=== PATIENT | male | born 1950 | race Caucasian/White ===

== ENCOUNTER 2019-10-19 10:03 | Observation (INO) | payer OTHER, SELFPAY ==
[2019-10-19] VITALS (27 sets, daily range): BP systolic 120–161; BP diastolic 58–101; PULSE 74–98; RESP 7–22; TEMP 36.4–36.7; O2SAT 92–97; BMI 22.5
--- NOTE | 2019-10-19 07:00 | XACV_ITS ---
Wt: 71 kg BSA: 1.88 m2 Any Known Allergies: Contrast Gender: Male : 1950 Exam Type: Invasive Peripheral Vascular Procedure(s): Procedure Description: Peripheral Cath Diagnostic Procedure Procedure Description: Lower extremities' angiography Exam Priority: Routine Abdominal Diagnostic Findings Patient with claudication and previous history of intervention to the right leg, details unknown. Noninvasive studies show moderate disease. No significant skin lesions or open sores. Patient is Sabina grade I, category 2; Neftali stage II. Procedure done from the left common femoral artery. Lower abdominal angiography reveals a small AAA near the bifurcation. Otherwise there is moderate plaquing in the abdominal aorta. Lower Extremity Diagnostic Findings On the right, the common iliac, external iliac and common femoral arteries are all patent with minor diffuse disease. The hypogastric artery is patent but contains mild to moderate diffuse disease. The profunda femoris is patent with mild to moderate diffuse disease. The superficial femoral artery is patent with mild diffuse disease. There previously placed stents which begin at the mid vessel and extend to the adductor canal. These are patent. The popliteal is essentially normal with mild diffuse disease. The anterior tibial is occluded a couple centimeters after its origin. The tibial peroneal trunk is patent. The posterior tibial artery is mildly diffusely diseased proximally and then is patent to the ankle. The peroneal artery is patent to the inferior aspect of the gastrocnemius then narrows down to a tiny vessel some of which is patent to the ankle. On the left, the common iliac, external iliac and common femoral arteries are patent with moderate diffuse disease. The profunda femoris artery is patent with moderate diffuse disease. The superficial femoral artery is also patent with moderate diffuse disease. The popliteal is patent with moderate diffuse disease. The anterior tibial artery is patent proximally but then is occluded in the midportion. There is a tiny amount of flow to the mid gastrocnemius muscle area. The tibial peroneal trunk is patent. The posterior tibial artery is patent to the ankle and contains mild diffuse disease. The peroneal artery is also patent to the ankle and contains mild to moderate diffuse disease. Conclusions Small AAA distal aorta. Patent common iliacs, external iliacs, common femorals, profunda femoris, superficial femoral and popliteal arteries bilaterally. One-vessel runoff on the right. Two-vessel runoff on the left. Access Site Site: Left Femoral artery Sheath Size: 6 Fr Hemost... Method: Manual Compression Hemost... Success: Successful Procedure Details Findings Procedure Consent Obtained. Pre-Procedure Time Out. Identified patient by full name and date of as verbalized by the patient/guarantor. Does the consent match the physician's order: Yes. Accurate & Complete Informed Consent: Yes. Inpatient/Outpatient History & Physical on Chart: Yes. If H&P is completed, is and addenduem needed: N/A; If yes, is the addendum complete: N/A. Visualize and Verify Site with Patient/Guarantor: N/A. Relevant Radiology Images available: Yes. Pre-op teaching completed and patient verbalized understanding. The risks, benefits, and alternatives of sedation and/or procedure were discussed by physician. The patient agrees to continue. Procedure started. Correct patient, site and procedure confirmed by cath team. PERRLA. Strong, equal hand wildlife officer bilaterally. Lungs clear x 5 lobes. IV Site on Arrival: 20 gauge in the left wrist. IV Fluids: 0.9% NaCl at KVO. 0 mL infused prior to pathology laboratory director. Pre Procedural Pulses: right dorsalis pedis was 2+. Pre Procedural Pulses: left dorsalis pedis was Doppled. Pre Procedural Pulses: bilateral posterior tibial was 2+. Pre Procedural Pulses: bilateral radial was 3+. Oxygen started at 2liters/min via nasal canula. bilateral groins was prepped with chloroprep then draped in the usual sterile fashion. Physician notified. Equipment: 6F - Femoral. Cardiac Cath Pack. ACIST Manifold Kit Model BT 2000. Heparinized Saline (2 units/mL), 1000 mL bag. Physician arrived. Baseline sample Acquired. HR: 88 BPM. Physician scrubbed in. Immediate Pre-Procedure Time Out. Correct Patient: Yes; Correct Procedure: Yes; Correct Site: Yes; Correct Patient Position: Yes; Correct Supplies: Yes; Dried Flammable Prep: Yes; Blood Products Available: No;. Time out performed with cath team. Lidocaine 1% infiltrated to the left groin. Arterial access obtained. A 5FrFr UF catheter in over wire. Abdominal aortogram performed in AP @ 10 mL/sec for a total of 30 mL. glidewire inserted. Catheter removed over the glide wire. A 5FrFr RIM catheter in over wire. wire out. right leg runnoff 10ml/sec for a total of30ml. Catheter out. Left leg runoff 10ml/sec for a total of 30ml. A Manual Compression was successful obtaining hemostatsis at the Left Femoral artery insertion site. Sheath(s) removed and manual pressure held until hemostasis was achieved. Sterile 4x4 and Op-site applied to the puncture site. No oozing or hematoma noted. Post sheath removal instructions were given and the patient verbalized understanding. Post Procedure: Pulses reassessed and unchanged. PERRLA. Strong, equal hand wildlife officer bilaterally. No VTE prophylaxis required. Total IV fluids: 24.5 mL. Fluoro: 17:00. Contrast type used: Visipaque 320 mgI/mL, 500 mL bottle. [id number]. Post-op diagnosis: PAD. Complications: none. Estimated blood loss: 5mL-10mL. Procedure completed. Patient transferred by bed to 1st floor. Medication's Wasted: Other = versed 1 mg. Medication's Wasted: Other = fenatnyl 50 mcg. Medication's Wasted: Lidocaine 1% = 10 mL. Vital chart was stopped. Procedure Medications Start: 9:14 AM Stop: 9:14 AM Medication: Solu-Medrol (methylprednisolone) Amount: 125 mg Route: I.V. Start: 9:18 AM Stop: 9:18 AM Medication: Versed Amount: 1 mg Route: I.V. Start: 9:18 AM Stop: 9:18 AM Medication: Fentanyl Amount: 50 mcg Route: I.V. I, the attending physician, have reviewed and verified all procedure medications. Yes, all medications given per verbal order History/Risk Factors Hypertension: Yes Dyslipidemia: Yes Peripheral Arterial Disease (PAD): Yes Myocardial Infarction (DC): No Obesity: No Renal Disease: Yes Tobacco Use: Current/Recent(w/in 1 year) Prior Interventions PCI: No CABG: No Valve Surgery: No Report Signatures Finalized by:Dr. Dilshad Gustafson MD on 10/19/2019 10:03:45 AM
[2019-10-19] MEDS: diphenhydrAMINE 50 mg Capsule PO (07:52)
[2019-10-19 08:04] LABS: Basophils # 0.1 10^3/uL (0.0-0.1); Basophils % 0.6 %; Eosinophils # 0.5 10^3/uL (0.0-0.8); Eosinophils % 5.1 %; Hematocrit 38.2 % (42.0-52.0); Hemoglobin 12.3 g/dL (11.7-16.6); Lymphocytes # 2.4 10^3/uL (0.8-4.8); Lymphocytes % 24.8 %; Mean Corpuscular HGB Conc 32.2 g/dL (30.0-36.0); Mean Corpuscular Hemoglobin 29.8 pg (28.0-34.0); Mean Corpuscular Volume 92.5 fL (80-94); Mean Platelet Volume 8.7 fL (7.4-10.4); Monocytes # 0.6 10^3/uL (0.2-0.9); Monocytes % 5.9 %; Neutrophils # 6.1 10^3/uL (1.8-7.7); Neutrophils % 63.1 %; Nucleated Red Blood Cells % 0 %; Platelet Count 315 10^3/cmm (130-400); Red Blood Count 4.13 10^6/uL (4.1-5.3); Red Cell Distribution Width 15.5 % (12.1-15.1); White Blood Count 9.7 10^3/uL (4.0-10.0)
[2019-10-19 08:21] LABS: Blood Urea Nitrogen 15 mg/dL (8-23); Calcium 9.7 mg/dL (8.5-10.5); Carbon Dioxide 25 mmol/L (22-29); Chloride 104 mmol/L (98-107); Glomerular Filtration Rate 54.6 mL/min (90-130); Glucose 127 mg/dL (65-115); Osmolality Calculated 290 mOsm/kg (285-295); Sodium 141 mmol/L (136-145)
--- NOTE | 2019-10-19 08:48 | PM.HP ---
Providers/Chief Complaint Admitting Physician: priscilla Primary Care Provider: Esa Lee Chief Complaint: Claudication History of Present Illness Koki Carlisle is a 69 year old male who was originally referred from the [facility] to Dr. Powell on 12 June last year some 4 months ago. He was having claudication. He is a longstanding smoker. The discomfort was in both legs. He is apparently had several prior interventions that were done at outside hospitals. No information is known about any of these interventions. He was complaining more about his left leg bothering him than the right. After Dr. Powell's visit he asked me to perform angiography which we set up. He came in for that procedure on 06 July of last year. When I went to see the patient in the preoperative area and he had no idea what had been done previously. His creatinine was 2.3 with a BUN of 31 and a glomerular filtration rate of 28 mL/min. Since we had no information and that both he and his are very poor historians I postponed the procedure at the time. His creatinine earlier in the year on 01/15/2019 was 1.6 with a BUN of 23. Patient told me he had seen a kidney specialist in [place]. It turns out that physician is actually a urologist and not a harvest supervisor. Patient's had bladder tumors. At the time he did not have critical limb ischemia and so I postponed the test and ask him to see a harvest supervisor. It took quite some time but ultimately he did see a harvest supervisor. I received a note from the harvest supervisor however no recommendations were made because the patient did not have any labs and did not have a follow-up appointment. We subsequently received another creatinine later on which was 1.6. We never did receive any other further information from the harvest supervisor. We then have asked him to drink plenty of fluids and come back today for reassessment. His creatinine this morning is 1.3 with a BUN of 15 and a glomerular filtration rate of 54.6 mL/min. Review of Systems General: Reports: 10 or more systems reviewed and unremarkable except in HPI and below Medications/Allergies Home Medications Medication Instructions Recorded Confirmed Last Taken Type albuterol sulfate 90 mcg INHALATION QID 10/16/19 10/16/19 10/18/19 06:00 History allopurinol 100 mg PO DAILY 10/16/19 10/16/19 10/18/19 06:00 History amlodipine 10 mg PO DAILY 10/16/19 10/16/19 10/18/19 06:00 History atorvastatin 10 mg PO BEDTIME 10/16/19 10/16/19 10/18/19 18:00 History clopidogrel 75 mg PO DAILY 10/16/19 10/16/19 10/18/19 06:00 History fluticasone propionate 50 mcg INTRANASAL DAILY 10/16/19 10/16/19 10/18/19 06:00 History indomethacin 50 mg PO DAILY 10/16/19 10/16/19 10/18/19 06:00 History pentoxifylline 400 mg PO TID 10/16/19 10/16/19 10/18/19 06:00 History ranitidine HCl 150 mg PO DAILY 10/16/19 10/16/19 10/18/19 06:00 History Allergies Allergy/AdvReac Type Severity Reaction Status Date / Time Penicillins Allergy Severe ALGY-Swell Verified 10/19/19 08:11 Lip/Tongue/Throat clonidine Allergy Unknown ADR-Dizzine Verified 10/19/19 08:11 ss codeine Allergy Unknown ADR-Abdominal Verified 10/19/19 08:11 Pain metoprolol Allergy Unknown ADR-Dizzine Verified 10/19/19 08:11 ss Sulfa (Sulfonamide Allergy Unknown ADR-Cramping Verified 10/19/19 08:11 Antibiotics) of the Muscles Iodinated Contrast Media Allergy ALGY-Rash Verified 10/19/19 08:11 PFSH Acute PFSH: Medical History Dyslipidemia GERD (gastroesophageal reflux disease) Gout HTN (hypertension) Hx of bladder cancer PVD (peripheral vascular disease) with claudication PATIENT STATES I HAVE 2 STENTS IN MY RIGHT LEG . [facility] Smoker attempting to quit. states he smokes on/off every other day. Family History Mother CAD (coronary artery disease) Social History Smoking and tobacco status: current some day smoker cigarettes Packs smoked per day: 1.5 Number of cigarettes per day: 1-5 Quit status (tobacco): considering quitting Second hand smoke exposure: No (ATTEMPTING TO QUIT) Vitals/I&O/Wt Last Vital Signs Temp 98.0 F 10/19/19 08:19 Pulse 77 10/19/19 08:19 Resp 18 10/19/19 08:19 BP 161/76 10/19/19 08:19 Pulse Ox 97 10/19/19 08:19 Weight last 48 hrs Weight 157 lb Physical Exam Narrative: EXAM NARRATIVE: GENERAL: Generally looks and feels well HEENT: Exam within normal limits. NECK: Supple without jugular vein distention. The carotid upstroke is normal without bruits. BACK: Exam normal. LUNGS: Clear. HEART: Regular rate and rhythm. ABDOMEN: Benign without organomegaly or tenderness. EXTREMITIES: No edema. NEUROLOGIC: Exam normal. SKIN: Unremarkable. Data : 10/19/19 07:55 10/19/19 07:55 A&P Assessment and plan (1) Dyslipidemia: Status: Acute Code(s): E78.5 - Hyperlipidemia, unspecified (2) HTN (hypertension): Status: Acute Code(s): I10 - Essential (primary) hypertension (3) PVD (peripheral vascular disease) with claudication: Status: Acute Code(s): I73.9 - Peripheral vascular disease, unspecified (4) Smoker: Status: Acute Code(s): F17.200 - Nicotine dependence, unspecified, uncomplicated (5) Claudication: Status: Acute Code(s): I73.9 - Peripheral vascular disease, unspecified Additional A&P Information Lower abdominal angiography and bilateral lower extremity angiography today. Attestations Medical Necessity Statement*: Patient is an outpatient in a bed and will not require 2 midnight stay Coding Level of Care Code New Pt Acute Transport Corps Officer for Chg Fwd Patient Type New Medical Decision Making Moderate Complexity Diagnoses Dyslipidemia E78.5 HTN (hypertension) I10 PVD (peripheral vascular disease) with claudication I73.9 Smoker F17.200 Claudication I73.9
--- NOTE | 2019-10-19 08:49 | SUR.PREOP ---
Patient ready for procedure by 819. Lab work pending and h/P needs update. Awaiting procedure.
--- NOTE | 2019-10-19 08:59 | PM.CONSULT ---
Providers/Reason For Consult Attending Physician: Dilshad Gustafson MD Primary Care Provider: Esa Lee History of Present Illness History of Present Illness Koki Carlisle is a 69 year old male Meds/Allergies Home Medications and Allergies Home Medications Medication Instructions Recorded Confirmed Type albuterol sulfate 90 mcg INHALATION QID 10/16/19 10/16/19 History allopurinol 100 mg PO DAILY 10/16/19 10/16/19 History amlodipine 10 mg PO DAILY 10/16/19 10/16/19 History atorvastatin 10 mg PO BEDTIME 10/16/19 10/16/19 History clopidogrel 75 mg PO DAILY 10/16/19 10/16/19 History fluticasone propionate 50 mcg INTRANASAL DAILY 10/16/19 10/16/19 History indomethacin 50 mg PO DAILY 10/16/19 10/16/19 History pentoxifylline 400 mg PO TID 10/16/19 10/16/19 History ranitidine HCl 150 mg PO DAILY 10/16/19 10/16/19 History Allergies Allergy/AdvReac Type Severity Reaction Status Date / Time Penicillins Allergy Severe ALGY-Swell Verified 10/19/19 08:11 Lip/Tongue/Throat clonidine Allergy Unknown ADR-Dizzine Verified 10/19/19 08:11 ss codeine Allergy Unknown ADR-Abdominal Verified 10/19/19 08:11 Pain metoprolol Allergy Unknown ADR-Dizzine Verified 10/19/19 08:11 ss Sulfa (Sulfonamide Allergy Unknown ADR-Cramping Verified 10/19/19 08:11 Antibiotics) of the Muscles Iodinated Contrast Media Allergy ALGY-Rash Verified 10/19/19 08:11 Current Medications Current Medications Generic Name Dose Route Start Last Admin Trade Name Freq PRN Reason Stop Dose Admin Sodium Chloride 1,000 mls @ 50 mls/hr 10/19/19 07:49 10/19/19 07:52 Sodium Chloride 0.9% IV 10/20/19 03:48 Not Given .Q20H ONE PFSH Acute PFSH: Medical History Dyslipidemia GERD (gastroesophageal reflux disease) Gout HTN (hypertension) Hx of bladder cancer PVD (peripheral vascular disease) with claudication PATIENT STATES I HAVE 2 STENTS IN MY RIGHT LEG . [facility] . Smoker attempting to quit. states he smokes on/off every other day. Family History Mother CAD (coronary artery disease) Social History Smoking and tobacco status: current some day smoker cigarettes Packs smoked per day: 1.5 Number of cigarettes per day: 1-5 Quit status (tobacco): considering quitting Second hand smoke exposure: No (ATTEMPTING TO QUIT) Vitals/I&O/Wt Last Vital Signs Temp 98.0 F 10/19/19 08:19 Pulse 77 10/19/19 08:19 Resp 18 10/19/19 08:19 BP 161/76 10/19/19 08:19 Pulse Ox 97 10/19/19 08:19 Weight last 48 hrs Weight 157 lb Coding Level of Care Code Acute Abstract Searcher for Chg Nathaly
--- NOTE | 2019-10-19 15:21 | PC.CHAP ---
Pastoral Care Encounter/Spiritual Assessment Type of Contact [] Declined instructional facilitator visit [] Patient/Family/Request visit [] Outpatient visit [] Follow-up visit [] Physician referral [] Code/Alert [x] Routine visit [] Staff referral [] Actively dying [] Patient sleeping [] Family support [] [] Out of room [] Palliative care [] [] Receiving care in room [] Pre-surgical visit [] Trauma [] Long length of stay [] ICU visit [] Other: Relational/Emotional Strength [x] Patient feels connected with others/family/visitors/staff [] Distress [] Loneliness/isolation [] Abandonment Spirituality of Patient [x] Person of Carly [] Attends Caodaism of their Carly [x] Believes in Prayer [] Reads Bible or Religion materials [] There are Spiritual issues to be addressed [facility] Interventions [x] Prayer [x] Active listening [x] Non-anxious presence [x] Spiritual/emotional support [] Crisis/trauma care [] Spiritual counseling [] Bereavement support [] Provided bereavement packet [] Provided Bible/devotional materials [] Provided toy/stuffed animal, coloring book to patient or family member [] Provided Communion [] Anointing/[place] [] Salvation [x] Completed spiritual assessment [] Other: Impact on Illness or Injury [] Angry [] Fearful [] Anxious [] Often cries [] Exhaustion [] Unable to work [] Unable to attend church [] Unable to walk/stand [] Unable to read [] Unable to drive [] Unable to eat/drink [] Unable to sleep [] Unable to be with family [] Patient intubated [] Other: Summary Patient was feeling good. He stated that he has been having circulation issues and has had them in the past. Discussed patient's health and he visited about his life. [facility] prayed with him. Patient was visited by [facility] Ean Macdonald. Time spent with patient 15 minutes
== END 2019-10-19 16:35 | disposition home or self-care (01) ==
LOC: OPCSU 10:03 → CCL 10:16 → CSU 10:17
PROVIDERS: Admitting Provider Internal Medicine Cardiovascular Disease; Family Provider Internal Medicine; PCP Internal Medicine; Visit Provider Internal Medicine Cardiovascular Disease
DX: E78.5 Hyperlipidemia, unspecified (principal); I10 Essential (primary) hypertension; I73.9 Peripheral vascular disease, unspecified; F17.210 Nicotine dependence, cigarettes, uncomplicated; K21.9 Gastro-esophageal reflux disease without esophagitis; Z85.51 Personal history of malignant neoplasm of bladder; Z82.49 Family history of ischemic heart disease and other diseases of the circulatory system; I71.4 Abdominal aortic aneurysm, without rupture
CPT/HCPCS: 12345; 36415; 75625; 75716; 80048; 85025; C1769; C1887; C1894; G0378; J1644; J2001; J2250; J2930; J3010; J7030; Q0163; Q9967

== ENCOUNTER → 2019-10-26 14:05 | Outpatient (BNVA) | payer OTHER, SELFPAY | PROVIDERS: Family Provider Internal Medicine; PCP Internal Medicine; Visit Provider Nurse Practitioner Family | DX: I73.9 Peripheral vascular disease, unspecified (principal) | CPT/HCPCS: 80048 ==

== ENCOUNTER 2020-01-13 07:54 | Day surgery (SDC) | payer OTHER, SELFPAY ==
[2020-01-12 10:16] VITALS: BMI 21.8
--- NOTE | 2020-01-12 10:32 | PC.NURSE ---
called dr. Nesbitt office to inform them that patient was confused on procedure and not aware of the prep for colonoscopy on 6-10. Spoke with rachele and she was to call patient.
[2020-01-13 08:40] VITALS: BP 128/82; PULSE 93; RESP 18; TEMP 36.8; O2SAT 96
[2020-01-13] MEDS: sodium chloride 0.9% 1,000 ML 30 ML IV (09:09)
--- NOTE | 2020-01-13 09:35 | P.HP_ITS ---
Same Day Surgery H&P Indication for Procedure/HPI DATE OF PROCEDURE: January 13, 2020 CHIEF COMPLAINT/INDICATIONFOR SURGICAL PROCEDURE: History of anemia and colon polyps PREOP DIAGNOSIS: Anemia PLANNED PROCEDRUE: Operation Date: 01/13/20 07:20 Proposed Procedures p EGD 02274 D64.9(Not Applicable) - Jovanny Nesbitt MD s Colonoscopy 61505 Z86.010(Not Applicable) - Jovanny Nesbitt MD Operation Date: 01/13/20 09:10 Proposed Procedures p EGD 98893 25505 D64.9 Z86.010(Not Applicable) - Jovanny Nesbitt MD s Colonoscopy(Not Applicable) - Jovanny Nesbitt MD This is a pleasant 69 years old gentleman referred to my practice for further evaluation with regard to history of anemia and history of polyps, the encounter was done through [email or web address] as the patient recalls that he had a previous colonoscopy about 3 to 4 years ago and polyps were found and he was recently undergone an angiogram for peripheral arterial disease and was placed on cilostazole, patient is referred today to discuss further EGD and colonoscopy for anemia, he denies history of hematemesis or bleeding per rectum or history of colon cancer. Patient comes today to undergo diagnostic EGD and colonoscopy ROS All systems have been reviewed negative except as per the above or per problem list Medications/Allergies* Home Medications Medication Instructions Recorded Confirmed Type albuterol sulfate 90 mcg INHALATION QID 10/16/19 01/13/20 History allopurinol 100 mg PO DAILY 10/16/19 01/13/20 History amlodipine 10 mg PO DAILY 10/16/19 01/13/20 History fluticasone propionate 50 mcg INTRANASAL DAILY 10/16/19 01/13/20 History atorvastatin 10 mg tablet 20 mg PO BEDTIME tab 10/26/19 01/13/20 History aspirin 81 mg tablet,delayed 81 mg PO DAILY 10/27/19 01/13/20 History release cetirizine 10 mg capsule 10 mg PO .prn cap 10/27/19 01/13/20 History cilostazol 100 mg tablet 100 mg PO BID 10/27/19 01/13/20 History donepezil 10 mg tablet 10 mg PO DAILY 10/27/19 01/13/20 History tramadol 50 mg tablet 50 mg PO Q6H PRN tab 10/27/19 01/13/20 History Allergies/Adverse Reactions Allergy/AdvReac Type Severity Reaction Status Date / Time Penicillins Allergy Severe ALGY-Swell Verified 01/13/20 09:35 Lip/Tongue/Throat clonidine Allergy Unknown ADR-Dizzine Verified 01/13/20 09:35 ss codeine Allergy Unknown ADR-Abdominal Verified 01/13/20 09:35 Pain metoprolol Allergy Unknown ADR-Dizzine Verified 01/13/20 09:35 ss Sulfa (Sulfonamide Allergy Unknown ADR-Cramping Verified 01/13/20 09:35 Antibiotics) of the Muscles Iodinated Contrast Media Allergy ALGY-Rash Verified 01/13/20 09:35 Current Medications: Generic Name Dose Route Start Last Admin Trade Name Freq PRN Reason Stop Dose Admin Sodium Chloride 1,000 mls @ 30 mls/hr 01/13/20 08:15 01/13/20 09:09 Sodium Chloride 0.9% IV 30 mls/hr .Q24H FAIZA Administration Pertinent History/Comorbid Conditions* Medical History Dyslipidemia GERD (gastroesophageal reflux disease) Gout History of colon polyps HTN (hypertension) Hx of bladder cancer Hx of fracture of femur PVD (peripheral vascular disease) with claudication PATIENT STATES I HAVE 2 STENTS IN MY RIGHT LEG . [facility] . Seasonal allergies Smoker attempting to quit. states he smokes on/off every other day. Surgical History (Updated 11/09/19 @ 11:05 by Jovanny Nesbitt MD) H/O vasectomy History of colonoscopy with polypectomy Hx of appendectomy Family History (Updated 11/09/19 @ 10:40 by Nhi Whitfield RN) CAD (coronary artery disease) Mother Denies family history of Anesthesia complication Bleeding disorder Social History Smoking and tobacco status: current some day smoker cigarettes Packs smoked per day: 1.5 Quit status (tobacco): considering quitting Second hand smoke exposure: No (ATTEMPTING TO QUIT) Pertinent Exam Findings alert, oriented x 3, clear to auscultation bilaterally, regular rate & rhythm and procedure specific exam findings (Abdomen NT ND Soft) Recommendations Surgery/Procedure today (EGD and colonoscopy and informed consent per chart) Coding Level of Care Code Acute School Examiner for Michele Andersen
--- NOTE | 2020-01-13 09:35 | ANES.PREANE2 ---
Pre-Anesthetic Assessment Pre-Anesthetic Assessment: Height/Weight: Height 1.78 m Weight 68.946 kg Temp Pulse Resp BP Pulse Ox 98.2 F 93 18 128/82 96 01/13/20 08:40 01/13/20 08:40 01/13/20 08:40 01/13/20 08:40 01/13/20 08:40 Preop Diagnosis: Anemia Proposed Procedure: Operation Date: 01/13/20 07:20 Proposed Procedures p EGD 14461 D64.9(Not Applicable) - Jovanny Nesbitt MD s Colonoscopy 65569 Z86.010(Not Applicable) - Jovanny Nesbitt MD Operation Date: 01/13/20 09:10 Proposed Procedures p EGD 04097 92004 D64.9 Z86.010(Not Applicable) - Jovanny Nesbitt MD s Colonoscopy(Not Applicable) - Jovanny Nesbitt MD Was Beta Shana taken within 24 hours: N/A Social: Social History: Tobacco and No alcohol Packs per day: 0.5 Exam: Pre-Anes Outpt Exam: alert Airway: Submandibular: WNL Cervical ROM: WNL Dentition: Full History/ROS: No significant history except as noted Pulmonary: Pulmonary: COPD CV/HEM: CV/HEM: HTN : Comments: cancer bladder, prostate Hepatic: Hepatic: None reported GI: GI: None reported Metabolic: Metabolic: None reported Musc/skel: Musc/skel: None reported Neuropsych: Neuropsych: None reported Anesthetic Plan: ASA status: 2 Anesthesia: MAC Risk of > 500 ml blood loss (7ml/kg in children): No Meds/Allergies Current Medications: Current Medications Generic Name Dose Route Start Last Admin Trade Name Freq PRN Reason Stop Dose Admin Sodium Chloride 1,000 mls @ 30 ml s/hr 01/13/20 08:15 01/13/20 09:09 Sodium Chloride 0.9% IV 30 mls/hr .Q24H FAIZA Administration PFSH Anesthesia PFSH: Medical History Dyslipidemia GERD (gastroesophageal reflux disease) Gout History of colon polyps HTN (hypertension) Hx of bladder cancer Hx of fracture of femur PVD (peripheral vascular disease) with claudication PATIENT STATES I HAVE 2 STENTS IN MY RIGHT LEG . [facility] . Seasonal allergies Smoker attempting to quit. states he smokes on/off every other day. Surgical History H/O vasectomy History of colonoscopy with polypectomy Hx of appendectomy Family History Mother CAD (coronary artery disease) Denies family history of Anesthesia complication Bleeding disorder Social History Smoking and tobacco status: current some day smoker cigarettes Packs smoked per day: 1.5 Quit status (tobacco): considering quitting Second hand smoke exposure: No (ATTEMPTING TO QUIT) Data Anesthesia Cardiac Studies: No Data to Display
[2020-01-13 10:10] VITALS: BP 108/67; PULSE 92; RESP 16; TEMP 36.5; O2SAT 93
--- NOTE | 2020-01-13 10:16 | ANE.PACU2 ---
Inpatient post-anesthesia follow up: Airway intact: Yes Vital signs: Temperature 98.2 F Pulse Rate 93 Respiratory Rate 18 Blood Pressure 128/82 Pulse Oximetry 96 Oxygen Delivery Me thod Room Air Oxygen Flow Rate Fraction of Inspir ed Oxygen Hydration adequate: Yes Nausea and vomiting: No Pain level: 1 Mental status: Baseline
[2020-01-13 10:34] VITALS: BP 127/80; PULSE 85; RESP 16; O2SAT 99
[2020-01-18 06:56] LABS: H. Pylori / CLO Test Negative
== END 2020-01-13 10:46 | disposition home or self-care (01) ==
PROVIDERS: Visit Provider Surgery
PROC: 0DJ08ZZ Inspection of Upper Intestinal Tract, Via Natural or Artificial Opening Endoscopic (ICD-10-PCS; CPT 43235; principal; 2020-01-13 09:10)
PROC: 0DJD8ZZ Inspection of Lower Intestinal Tract, Via Natural or Artificial Opening Endoscopic (ICD-10-PCS; CPT 45378; 2020-01-13 09:10)
DX: D64.9 Anemia, unspecified (principal); Z86.010 Personal history of colon polyps; K57.30 Diverticulosis of large intestine without perforation or abscess without bleeding; K21.9 Gastro-esophageal reflux disease without esophagitis; K44.9 Diaphragmatic hernia without obstruction or gangrene; K29.70 Gastritis, unspecified, without bleeding; J44.9 Chronic obstructive pulmonary disease, unspecified; F17.210 Nicotine dependence, cigarettes, uncomplicated; I10 Essential (primary) hypertension; E78.5 Hyperlipidemia, unspecified; Z85.51 Personal history of malignant neoplasm of bladder
CPT/HCPCS: 12345; 43239; 45378; 87077; J2704; J7030

== ENCOUNTER → 2020-02-23 15:15 | Outpatient (BNVA) | payer MEDICARE, SELFPAY | PROVIDERS: Visit Provider Nurse Practitioner Family | DX: S89.91XA Unspecified injury of right lower leg, initial encounter (principal); W19.XXXA Unspecified fall, initial encounter | CPT/HCPCS: 73562 ==

== ENCOUNTER → 2020-02-29 17:10 | Outpatient (BNVA) | payer MEDICARE, SELFPAY | PROVIDERS: Visit Provider Nurse Practitioner Family | DX: M25.562 Pain in left knee (principal) | CPT/HCPCS: 80053; 84550; 85025 ==

== ENCOUNTER 2020-11-09 10:22 | Outpatient (CLI) | payer OTHER, SELFPAY ==
--- NOTE | 2020-11-09 10:29 | USCV_ITS ---
Koki Carlisle Age: 70 Gender: M : 1950 Exam Date: 11/09/2020 10:47 Ordering Phys: Lacy Strange MD Technologist: Roselia Orta Exam Location: [facility] [place] Indication: MEMORY LOSS Risk Factors: Previous Vascular Surgery: Right Brachial BP: / Left Brachial BP: / Right Left Velocity (cm/s) Spectral Plaque Velocity (cm/s) Spectral Plaque Syst/Diast Broadening Syst/Diast Broadening 118.00/12.10 Prox CCA 108.10/ 15.40 73.50/ 15.40 Mid CCA 85.40 / 12.80 63.50/ 12.60 Distal CCA 64.10 / 13.70 61.40/ 17.10 Prox ICA 57.50 / 10.90 69.10/ 21.80 Mid ICA 67.60 / 20.20 76.30/ 29.20 Distal ICA 61.40 / 20.20 111.40 ECA 119.70 0.65 ICA/CCA 0.63 Antegrade Vertebral Antegrade 57.10/ 13.50 cm/s 55.60/ 12.80 cm/s Tri Subclavian Tri 155.1 188.3 0 0 CONCLUSIONS Right ICA stenosis <50%. Mild atheromatous plaque right carotid bulb/ICA. Left ICA stenosis <50%. Mild atheromatous plaque left carotid bulb/ICA. Normal antegrade Doppler flow noted in the right vertebral artery. Normal antegrade Doppler flow noted in the left vertebral artery. Wicho Johns MD (Electronically Signed) Final Date: 10 November 2020 10:24 S
== END 2020-11-09 10:23 | disposition home or self-care (01) ==
LOC: RAD 10:26
PROVIDERS: PCP Family Medicine; Visit Provider Family Medicine
DX: R41.3 Other amnesia (principal); I65.23 Occlusion and stenosis of bilateral carotid arteries
CPT/HCPCS: 93880

== ENCOUNTER → 2020-12-05 09:35 | Outpatient (BNVA) | payer OTHER, SELFPAY | PROVIDERS: PCP Family Medicine; Visit Provider Nurse Practitioner | DX: R41.89 Other symptoms and signs involving cognitive functions and awareness (principal); F17.210 Nicotine dependence, cigarettes, uncomplicated | CPT/HCPCS: 96116; 99204; 99205 ==

== ENCOUNTER 2021-02-02 08:17 | Outpatient (CLI) | payer OTHER, SELFPAY ==
--- NOTE | 2021-02-02 08:00 | MR_ITS ---
WS: [id number] MRI HEAD WITHOUT CONTRAST TECHNIQUE: Sagittal T1, T2 axial, T2 axial FLAIR, axial and coronal T1 images, axial susceptibility w eighted imaging, axial diffusion weighted images, and coronal T2 images were obtained. CLINICAL INFORMATION: R41.89 - Other symptoms and signs involving cognitive fun... COMPARISON: None. FINDINGS: Suggestion of a tiny amount of partially restricted diffusion involving the left cervical medullary j unction dorsally measuring 4 mm is equivocal but suspicious for acute to subacute ischemia. Tiny amou nt of T2 signal abnormality in this location. This is at the very edge of the [id number] and may r epresent artifact. Otherwise no suspicious areas of restricted diffusion or acute ischemia. Moderate small vessel changes. Moderate parenchymal volume loss. Small vessel changes in the jay. Ch ronic lacunar infarcts in the left caudate and left greater than right basal ganglia. Normal posterio r fossa. Normal vascular flow voids at the skull base. No extra-axial fluid collections. Normal optic chiasm and pituitary infundibulum. Moderate symmetric atrophy temporal lobes and hippocampal formati ons. No signal abnormalities in the temporal lobes. No hemosiderin on susceptibly weighted images. MR/MR head wo con* [id number] IMPRESSION: 1. Suggestion of a tiny amount of acute or subacute ischemia in the dorsal cer vicomedullary junction measuring 4 mm. This is at the edge of field of view and may represent artifact. Recommend correlation for recent lateral medullary sym ptoms. 2. No other evidence of acute ischemia. 3. Moderate small vessel changes with moderate parenchymal volume loss. 4. Chronic lacunar infarcts in the left caudate and left greater than right ba juju ganglia. 5. Small vessel changes in the jay. 6. Moderate symmetric atrophy temporal lobes and hippocampal formations. No si gnal abnormalities in the mesial temporal lobes. 7. No hemosiderin on susceptibly weighted images. 8. No other significant findings.
== END 2021-02-02 08:18 | disposition home or self-care (01) ==
LOC: RADSHAW 08:19
PROVIDERS: PCP Family Medicine; Visit Provider Specialist
DX: R41.89 Other symptoms and signs involving cognitive functions and awareness (principal); G31.9 Degenerative disease of nervous system, unspecified; I63.81 Other cerebral infarction due to occlusion or stenosis of small artery
CPT/HCPCS: 70551

== ENCOUNTER 2021-02-23 20:56 | Observation (INO) | payer OTHER, SELFPAY ==
[2021-02-23 20:59] VITALS: BP 136/72; PULSE 99; RESP 18; TEMP 36.5; O2SAT 97; BMI 23.6
--- NOTE | 2021-02-23 21:06 | ECG_ITS ---
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 Measurements Intervals [place] Rate: 99 P: 52 MA: 151 QRS: 31 QRSD: 90 T: 45 QT: 365 QTc: 470 Interpretive Statements SINUS RHYTHM NONSPECIFIC T-WAVE ABNORMALITY INTERPRETATION BASED ON A DEFAULT AGE OF 40 YEARS No previous ECG available for comparison Electronically Signed On 02-24-2021 14:53:42 CDT by Angella Cervantes M.D. [id number]
--- NOTE | 2021-02-23 21:06 | CTR_ITS ---
PROCEDURE INFORMATION: Exam: CT Head Without Contrast Exam date and time: 02/23/2021 9:06 PM Age: 70 years old Clinical indication: Altered mental status/memory loss; Additional info: Headache TECHNIQUE: Imaging protocol: Computed tomography of the head without contrast. Radiation optimization: All CT scans at this facility use at least one of these dose optimization techniques: automated exposure control; mA and/or kV adjustment per patient size (includes targeted exams where dose is matched to clinical indication); or iterative reconstruction. COMPARISON: MR head wo con* [id number] 02/02/2021 9:27 AM RADIATION DOSE METRICS: Total DLP (mGy-cm): 705.06 FINDINGS: Brain: There is mild cortical atrophy. Low-density changes in the white matter are consistent with nonspecific small vessel chronic ischemic change. There is no intracranial mass, hemorrhage or edema. There is small old lacunar infarct in the left basal ganglia. Cerebral ventricles: No ventriculomegaly. Paranasal sinuses: Visualized sinuses are unremarkable. No fluid levels. Mastoid air cells: Visualized mastoid air cells are well aerated. Bones/joints: Unremarkable. No acute fracture. Soft tissues: Unremarkable. CT/CT head wo con* [id number] IMPRESSION: 1. Atrophy and old lacunar disease. 2. No acute intracranial finding. Radiation Dose CTDIVOL = (mGy): DLP = 705.06 (mGy-cm)
--- NOTE | 2021-02-23 21:06 | XRR_ITS ---
PROCEDURE INFORMATION: Exam: XR Chest Exam date and time: 02/23/2021 9:06 PM Age: 70 years old Clinical indication: Cough; Patient HX: PT AMS unable to obtain HX TECHNIQUE: Imaging protocol: XR of the chest. Views: 1 view. COMPARISON: CT chest con [id number] 04/02/2014 8:56 AM FINDINGS: Lungs: There is some subsegmental atelectasis at the lung bases and some mild focal infiltrate at the right lung base. Pleural spaces: Unremarkable. No pleural effusion. No pneumothorax. Heart/Mediastinum: Heart is within normal limits of size. Bones/joints: Unremarkable. XR/XR chest 1V portable [id number] IMPRESSION: Mild basilar atelectasis and small infiltrate at the right lung base.
--- NOTE | 2021-02-23 21:08 | ED_ITS ---
HPI - Altered Mental Status General: Chief Complaint: Altered Mental Status Stated Complaint: unresposive poss etoh Time Seen by Provider: 02/23/21 21:06 History of Present Illness: HPI narrative: This patient is a 70-year-old male who was found unresponsive on the ground at his home. Patient apparently had been outside doing yard work all day and drinking alcohol. Family member stated been an hour since late last week since eating well. Upon EMS arrival the patient was laying on the ground with his legs crossed the most of his he was taking a nap. Upon approaching the patient patient became very combative and fighting and yelling and screaming and threatening to kill people. Patient states he has a history of killing people from [place] and that he would harm everyone. Patient was demanding to let me let go. EMS reports that they gave patient a 250 mg of ketamine followed by another 200 of ketamine due to the sedation wearing off the patient becoming combative again. Patient's vital signs have been stable otherwise. Medical record shows the patient has a history of cognitive impairment do not know what this classification is. Awaiting for family to arrive. Will do medical evaluation treat as needed MD complaint: confusion and intoxication Associated symptoms: Deny depression Review of Systems General: Reports: ROS unobtainable due to medical condition Const: Denies: fever(s), chills, body aches or fatigue Eyes: Denies: change in vision or blurry vision ENMT: Denies: throat pain, hoarseness or mouth pain Card: Denies: chest pain, palpitations, irregular heart rhythm, edema, swelling of feet/ankles or lightheadedness Resp: Denies: dyspnea, productive cough, non-productive cough, wheezing or pain on inspiration GI: Denies: abdominal pain, nausea or vomiting : Denies: flank pain, dysuria, urinary frequency, urinary urgency or urinary hesitancy Musc: Denies: neck pain, back pain, extremity pain, extremity swelling, joint pain, joint swelling, joint redness, joint warmth or limited range of motion Skin/Breast: Denies: rash, pruritus, erythema or skin tenderness Neuro: Denies: headache(s), numbness in extremities or weakness in extremities Psych: Denies: anxiety or depression PFSH ED PFSH: Medical History Cognitive impairment Dyslipidemia GERD (gastroesophageal reflux disease) Gout History of colon polyps History of nonmelanoma skin cancer HTN (hypertension) Hx of bladder cancer Hx of fracture of femur PVD (peripheral vascular disease) with claudication PATIENT STATES I HAVE 2 STENTS IN MY RIGHT LEG . [facility] . Seasonal allergies Smoker attempting to quit. states he smokes on/off every other day. Surgical History H/O vasectomy History of colonoscopy with polypectomy Hx of appendectomy Family History Mother CAD (coronary artery disease) Denies family history of Anesthesia complication Bleeding disorder Social History Smoking and tobacco status: current every day smoker cigarettes Packs smoked per day: 1.5 [ Other cigarette details: has smoked approx 55 yrs ] Quit status (tobacco): considering quitting Second hand smoke exposure: No (ATTEMPTING TO QUIT) Alcohol intake: never Lives independently: Yes Household members: spouse Marital status: Current occupational status: retired History of recent travel: No Current gender identity: Male Physical Exam Const: COMMON NORMALS: no acute distress, average body habitus, no limitations, healthy appearing, alert and well nourished EXAM LIMITATIONS: other limitations (Patient has been medicated with ketamine. Via EMS) HENMT: COMMON NORMALS: normocephalic, atraumatic, hearing grossly normal bilaterally, external ears normal, EAC's normal, TM's normal bilaterally, Normal external nose present, Normal nasal mucous membranes and turbinates present, moist oral mucous membranes, oropharynx normal, dentition normal and gingiva normal HEAD & SCALP: normocephalic and atraumatic NOSE: Normal external nose present and Normal nasal mucous membranes and turbinates present EXTERNAL EAR: Yes external ears normal EXTERNAL AUDITORY CANAL: EAC's normal TYMPANIC MEMBRANE: TM's normal bilaterally Neck/C-Spine: COMMON NORMALS: full ROM, no lymphadenopathy, supple, no meningeal signs, no JVD, Thyroid normal and No carotid bruits THYROID: Thyroid normal Chest: COMMONS NORMALS: normal inspection of the chest, normal palpation of entire chest wall, normal inspection of the breasts and normal palpation of the breasts Resp: COMMON NORMALS: normal respiratory effort, No retractions, No use of accessory muscles, clear to auscultation bilaterally and percussion normal AUSCULTATION: clear to auscultation bilaterally PERCUSSION: percussion normal Cardio: COMMON NORMALS: no JVD, regular rate, regular rhythm, S1 normal heart sound present, S2 normal heart sound present, No gallops present (Cardio), No clicks present (Cardio), No murmurs present (Cardio), No rub (Cardio) and Peripheral pulses 2+ throughout RATE: regular rate RHYTHM: regular rhythm HEART SOUNDS: S1 normal heart sound present and S2 normal heart sound present PERIPHERAL PULSES: Peripheral pulses 2+ throughout GI: COMMON NORMALS: Normal to inspection, nondistended, normoactive bowel sounds present, Soft to palpation, non-tender, No hepatosplenomegaly present, no masses and no bruits PALPATION: Yes Soft to palpation and Yes No hepatosplenomegaly present : COMMON NORMALS: Yes no CVA tenderness BLADDER/KIDNEY EXAM: Yes no CVA tenderness Back/Pelvis: COMMON NORMALS: no CVA tenderness, thoracic and lumbar spine normal to inspection, no thoracic nor lumbar tenderness, thoraco-lumbar ROM normal and straight leg raise negative bilaterally Extremity: COMMON NORMALS: normal to inspection, full ROM, capillary refill normal, no joint enlargement, no clubbing, cyanosis or edema, no calf tenderness and no pedal edema Neuro: SENSORIUM/ORIENTATION: Yes alert MENINGEAL SIGNS: Yes no meningeal signs Course Reevaluation(s): Reevaluation #1: Patient is calm at this time doing much better after given 0.5 Ativan. is arrived to the hospital. She states that the patient appeared to be sleeping and she could not get him aroused but became awake in the ambulance and it appeared that he was having a flashback from [place]. Very angry and fighting. Patient states he has flashbacks from time to time but it has been a while. states that she also was drinking today and he normally does not drink. States that he has been doing well and actually grilled chicken for dinner. Start everything was acting normally. also states the patient has early dementia and is started medications to help with his memory issues. We will continue medical evaluation treat as needed Time: 22:06 Reevaluation #2: Patient appears to be at his mental baseline at this time. After long discussion with family. Unknown reason why the patient was down in the field and being so combative other than baseline dementia. History of posttraumatic stress disorder related to flashbacks from [place]. Patient appears to be at his baseline. Patient be admitted to the hospital due to confusion and mental status change. Patient family stated Time: 23:51 Consultations: Consultation #1: I did discuss at length with Dr. Aragon he is agreed admit the patient to the hospital for further evaluation and treatment. He will see patient write additional orders Time: 23:52 Vital Signs: Vital signs: Vital Signs Temperature 97.7 F 02/23/21 20:59 Pulse Rate 96 02/23/21 23:06 Respiratory Rate 17 02/23/21 23:06 Blood Pressure 140/78 02/23/21 23:06 Pulse Oximetry 96 02/23/21 23:06 MDM - Altered Mental Status MDM Narrative: Medical decision making narrative: This patient is a 70-year-old male who was found unresponsive on the ground at his home. Patient apparently had been outside doing yard work all day and drinking alcohol. Family member stated been an hour since late last week since eating well. Upon EMS arrival the patient was laying on the ground with his legs crossed the most of his he was taking a nap. Upon approaching the patient patient became very combative and fighting and yelling and screaming and threatening to kill people. Patient states he has a history of killing people from [place] and that he would harm everyone. Patient was demanding to let me let go. EMS reports that they gave patient a 250 mg of ketamine followed by another 200 of ketamine due to the sedation wearing off the patient becoming combative again. Patient's vital signs have been stable otherwise. Medical record shows the patient has a history of cognitive impairment do not know what this classification is. Awaiting for family to arrive. Patient appears to be at his mental baseline at this time. After long discussion with family. Unknown reason why the patient was down in the field and being so combative other than baseline dementia. History of posttraumatic stress disorder related to flashbacks from [place]. Patient appears to be at his baseline. Patient be admitted to the hospital due to confusion and mental status change. Patient family stated I did discuss at length with Dr. Aragon he is agreed admit the patient to the hospital for further evaluation and treatment. He will see patient write additional orders Medical Records: Attestation: I reviewed the patient's medical records. Lab Data: Attestation: I reviewed the patient's lab results. Labs: Lab Results 02/23/21 02/23/21 02/23/21 Range/Units 21:03 21:03 21:03 WBC 7.7 (4.0-10.0) 10^3/ uL RBC 4.08 L (4.1-5.3) 10^6/u L Hgb 12.2 (11.7-16.6) g/dL Hct 38.1 L (42.0-52.0) % MCV 93.4 (80-94) fL MCH 29.9 (28.0-34.0) pg MCHC 32.0 (30.0-36.0) g/dL RDW 19.1 H (12.1-15.1) % Plt Count 205 (130-400) 10^3/c mm MPV 9.2 (7.4-10.4) fL Neut % (Auto) 46.1 % Lymph % (Auto) 37.9 % [place] % (Auto) 10.1 % Eos % (Auto) 4.6 % Baso % (Auto) 1.0 % Neut # (Auto) 3.53 (1.8-7.7) 10^3/u L Lymph # (Auto) 2.9 (0.8-4.8) 10^3/u L [place] # (Auto) 0.8 (0.2-0.9) 10^3/u L Eos # (Auto) 0.4 (0.0-0.8) 10^3/u L Baso # (Auto) 0.1 (0.0-0.1) 10^3/u L Nucleated RBC % (a uto) 0 % Nucleated RBCs # 0.0 /100WBC PT (12.1-14.9) SECO NDS INR (0.8-1.2) APTT (23.9-36.7) SECO NDS Sodium 138 (136-145) mmol/L Potassium 3.5 (3.5-5.1) mmol/L Chloride 106 (98-107) mmol/L Carbon Dioxide 15 L (22-29) mmol/L Anion Gap 20.5 H (5-19) BUN 14 (8-23) mg/dL Creatinine 1.2 (0.7-1.2) mg/dL GFR Calculation Not Reportable Glucose 69 (65-115) mg/dL Calculated Osmolal ity 285 (285-295) mOsm/k g Calcium 7.8 L (8.5-10.5) mg/dL Total Bilirubin 0.2 (0.15-1.2) mg/dL AST 24 (0-40) U/L ALT 19 (0-41) U/L Alkaline Phosphata se 94 (40-130) IU/L Ammonia 39 (16-60) umol/L Troponin T Baselin e (0-15) ng/L Troponin T 120 Min [place] (0-15) ng/L Delta Troponin T (0-10) ABS# NT-Pro-B Natriuret Pep 76 (0-125) pg/mL Total Protein 6.1 L (6.6-8.7) g/dL Albumin 4.0 (3.5-5.2) g/dL Globulin 2.1 (1.3-4.6) g/dL Lipase 155 H (13-60) U/L Acetaminophen < 5.0 L (10-30) ug/mL Ethyl Alcohol 107 H (0-10) mg/dL 02/23/21 02/23/21 02/23/21 Range/Units 21:03 21:03 23:10 WBC (4.0-10.0) 10^3/ uL RBC (4.1-5.3) 10^6/u L Hgb (11.7-16.6) g/dL Hct (42.0-52.0) % MCV (80-94) fL MCH (28.0-34.0) pg MCHC (30.0-36.0) g/dL RDW (12.1-15.1) % Plt Count (130-400) 10^3/c mm MPV (7.4-10.4) fL Neut % (Auto) % Lymph % (Auto) % [place] % (Auto) % Eos % (Auto) % Baso % (Auto) % Neut # (Auto) (1.8-7.7) 10^3/u L Lymph # (Auto) (0.8-4.8) 10^3/u L [place] # (Auto) (0.2-0.9) 10^3/u L Eos # (Auto) (0.0-0.8) 10^3/u L Baso # (Auto) (0.0-0.1) 10^3/u L Nucleated RBC % (a uto) % Nucleated RBCs # /100WBC PT 13.70 (12.1-14.9) SECO NDS INR 1.02 (0.8-1.2) APTT 30.6 (23.9-36.7) SECO NDS Sodium (136-145) mmol/L Potassium (3.5-5.1) mmol/L Chloride (98-107) mmol/L Carbon Dioxide (22-29) mmol/L Anion Gap (5-19) BUN (8-23) mg/dL Creatinine (0.7-1.2) mg/dL GFR Calculation Glucose (65-115) mg/dL Calculated Osmolal ity (285-295) mOsm/k g Calcium (8.5-10.5) mg/dL Total Bilirubin (0.15-1.2) mg/dL AST (0-40) U/L ALT (0-41) U/L Alkaline Phosphata se (40-130) IU/L Ammonia (16-60) umol/L Troponin T Baselin e 12 (0-15) ng/L Troponin T 120 Min [place] 13.50 (0-15) ng/L Delta Troponin T 1.50 (0-10) ABS# NT-Pro-B Natriuret Pep (0-125) pg/mL Total Protein (6.6-8.7) g/dL Albumin (3.5-5.2) g/dL Globulin (1.3-4.6) g/dL Lipase (13-60) U/L Acetaminophen (10-30) ug/mL Ethyl Alcohol (0-10) mg/dL Imaging Data^: CXR: Attestation: I personally reviewed and interpreted this imaging study as follows: Radiologist's impression: IMPRESSION: Mild basilar atelectasis and small infiltrate at the right lung base. CT Head: Attestation: I personally reviewed and interpreted this imaging study as follows: Radiologist's impression: FINDINGS: Brain: There is mild cortical atrophy. Low-density changes in the white matter are consistent with nonspecific small vessel chronic ischemic change. There is no intracranial mass, hemorrhage or edema. There is small old lacunar infarct in the left basal ganglia. Cerebral ventricles: No ventriculomegaly. Paranasal sinuses: Visualized sinuses are unremarkable. No fluid levels. Mastoid air cells: Visualized mastoid air cells are well aerated. Bones/joints: Unremarkable. No acute fracture. Soft tissues: Unremarkable. CT/CT head wo con* [id number] IMPRESSION: 1. Atrophy and old lacunar disease. 2. No acute intracranial finding. EKG Data^: EKG 1: Attestation: I personally reviewed and interpreted this EKG as follows: EKG interpretation date: 02/23/21 EKG interpretation time: 21:03 Prior EKG tracings: not available for review Interpretation: Sinus rhythm with nonspecific T wave changes borderline EKG heart rate 99 Discharge Plan Discharge Patient Disposition: Placed in Observation Clinical Impression: Altered mental status, Alcohol intoxication, History of dementia Condition: Stable Prescriptions: No Action atorvastatin 10 mg tablet 20 mg PO BEDTIME RF: 0 donepezil 10 mg tablet 10 mg PO DAILY RF: 0 aspirin [Adult Aspirin Regimen] 81 mg tablet,delayed release (DR/EC) 81 mg PO DAILY RF: 0 tramadol 50 mg tablet 50 mg PO Q6H PRN (Reason: Pain) RF: 0 Zyrtec 10 mg capsule 10 mg PO .prn RF: 0 pentoxifylline 400 mg tablet extended release 400 mg PO TID Qty: 90 RF: 0 memantine [Namenda] 10 mg tablet 10 mg PO BID Qty: 60 RF: 6 Protonix 40 mg tablet,delayed release (DR/EC) 40 mg PO DAILY 30 Days Qty: 30 RF: 2 allopurinol 100 mg tablet 100 mg PO DAILY RF: 0 amlodipine 10 mg tablet 10 mg PO DAILY RF: 0 albuterol sulfate 90 mcg/actuation HFA aerosol inhaler 90 mcg inhalation QID RF: 0 fluticasone propionate 50 mcg/actuation spray,suspension 50 mcg INTRANASAL DAILY RF: 0 Referrals: Lacy Strange MD [Primary Care Provider] - Coding Level of Care Code ED Dog Groomer for Chg Fwd Exam Comprehensive
[2021-02-23] MEDS: LORazepam 2 mg/mL INJ 1 mL 0.5 MG IVP (21:11)
[2021-02-23 21:14] LABS: Basophils # 0.1 10^3/uL (0.0-0.1); Eosinophils # 0.4 10^3/uL (0.0-0.8); Eosinophils % 4.6 %; Hematocrit 38.1 % (42.0-52.0); Hemoglobin 12.2 g/dL (11.7-16.6); Lymphocytes # 2.9 10^3/uL (0.8-4.8); Lymphocytes % 37.9 %; Mean Corpuscular Hemoglobin 29.9 pg (28.0-34.0); Mean Corpuscular Volume 93.4 fL (80-94); Mean Platelet Volume 9.2 fL (7.4-10.4); Monocytes # 0.8 10^3/uL (0.2-0.9); Monocytes % 10.1 %; Neutrophils # 3.53 10^3/uL (1.8-7.7); Neutrophils % 46.1 %; Nucleated Red Blood Cells % 0 %; Platelet Count 205 10^3/cmm (130-400); Red Blood Count 4.08 10^6/uL (4.1-5.3); Red Cell Distribution Width 19.1 % (12.1-15.1); White Blood Count 7.7 10^3/uL (4.0-10.0)
[2021-02-23 21:21] LABS: INR 1.02 (0.8-1.2)
[2021-02-23 21:22] LABS: Partial Thromboplastin Time 30.6 SECONDS (23.9-36.7)
[2021-02-23 21:27] LABS: Troponin(5th) Baseline 12 ng/L (0-15)
[2021-02-23 21:32] LABS: Ammonia 39 umol/L (16-60)
[2021-02-23 21:36] LABS: Acetaminophen < 5.0 ug/mL (10-30); Alanine Aminotransferase 19 U/L (0-41); Alcohol Level 107 mg/dL (0-10); Alkaline Phosphatase 94 IU/L (40-130); Anion Gap 20.5 (5-19); Aspartate Amino Transferase 24 U/L (0-40); Blood Urea Nitrogen 14 mg/dL (8-23); Calcium 7.8 mg/dL (8.5-10.5); Carbon Dioxide 15 mmol/L (22-29); Chloride 106 mmol/L (98-107); Globulin 2.1 g/dL (1.3-4.6); Glucose 69 mg/dL (65-115); Lipase 155 U/L (13-60); NT Pro B Type Natriuretic Pept 76 pg/mL (0-125); Osmolality Calculated 285 mOsm/kg (285-295); Potassium 3.5 mmol/L (3.5-5.1); Sodium 138 mmol/L (136-145); Total Bilirubin 0.2 mg/dL (0.15-1.2); Total Protein 6.1 g/dL (6.6-8.7)
[2021-02-23 23:06] VITALS: BP 140/78; PULSE 96; RESP 17; O2SAT 96
--- NOTE | 2021-02-23 23:07 | ECG_ITS ---
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 Measurements Intervals [place] Rate: 95 P: 52 [place]: 157 QRS: 23 QRSD: 90 T: 50 QT: 368 QTc: 463 Interpretive Statements SINUS RHYTHM NONSPECIFIC T-WAVE ABNORMALITY Compared to ECG 02/23/2021 21:03:16 No significant changes Electronically Signed On 02-24-2021 14:59:47 CDT by Angella Cervantes M.D. [id number]
[2021-02-24] VITALS (8 sets, daily range): BP systolic 120–153; BP diastolic 63–89; PULSE 74–93; RESP 15–18; TEMP 36.6–36.9; O2SAT 91–98
[2021-02-24 00:27] LABS: Add Urine Microscopic? NO; Charge for UA Resulting for Rev
[2021-02-24 00:41] LABS: Amphetamines Screen Urine Negative (Negative); Barbiturates Screen Urine Negative (Negative); Benzodiazepines Screen Urine Negative (Negative); Cocaine Screen Urine Negative (Negative); Opiate Screen Urine Negative (Negative); PCP Screen Urine Negative (Negative); THC Screen Urine Negative (Negative)
[2021-02-24 01:03] LABS: Bilirubin Urine Neg (Negative); Blood Urine Neg (Negative); Glucose Urine UA Norm (Normal); Ketones Urine Negative (Negative); Leukocyte Esterase Urine Negative (Negative); Nitrate Urine Negative (Negative); Protein Urine Neg (Negative); Specific Gravity, Urine 1.005 (1.005-1.030); Urine Appearance Clear (CLEAR); Urine Color Yellow (Yellow); Urobilinogen Urine Norm (Negative); pH Urine 5 (5-7)
--- NOTE | 2021-02-24 01:36 | USCV_ITS ---
Koki Carlisle Age: 70 Gender: M : 1950 Exam Date: 02/24/2021 09:29 Ordering Phys: Maryann Aragon MD Technologist: Bang Williamson Exam Location: [facility] [place] Indication: Shortness of breath BP: 156 / 76 HR: 74 Rhythm: Sinus Technical Quality: Poor MEASUREMENTS (Male / Female) Normal Values 2D ECHO LV Ejection Fraction MOD 2C 69.7 % LV Ejection Fraction 2C AL 69.6 % LA Width 3.9 cm LA Height 4.8 cm RA Width 4.0 cm RA Height 4.4 cm DOPPLER AV Peak Velocity 147.0 cm/s LVOT Peak Velocity 111.0 cm/s MV Area PHT 5.0 cm squared Mitral E to A Ratio 0.8 MV E' Velocity 43.5 cm/s Mitral E to MV E' Ratio 6.9 Mitral E to LV E' Lateral Ratio 6.4 Mitral E to LV E' Septal Ratio 7.5 TR Peak Velocity 248.3 cm/s TR Peak Gradient 24.7 mmHg TV Peak E Velocity 74.0 cm/s Right Atrial Pressure 3.0 mmHg Pulmonary Artery Systolic Pressu 27.7 mmHg FINDINGS Left Ventricle Normal left ventricular size, systolic function and wall thickness, with no regional wall motion abnormalities. Left ventricular ejection fraction is estimated at 65 %. Normal diastolic function. Right Ventricle Normal right ventricular size and systolic function. Right ventricular systolic pressure 32 mmHg. Right Atrium Normal right atrial size. Right atrial pressure estimated at 3 mmHg. Left Atrium Normal left atrial size. Mitral Valve Mildly thickened mitral valve. No mitral valve stenosis. No mitral valve regurgitation. Aortic Valve Aortic valve not well visualized. No aortic valve regurgitation. Tricuspid Valve Structurally normal tricuspid valve. Trace tricuspid valve regurgitation. Pulmonic Valve Pulmonic valve not well visualized. Pericardium No pericardial effusion. Aorta Aorta not well visualized. Normal-sized inferior vena cava with normal respiratory variation. CONCLUSIONS 1. This is a technically difficult study with no parasternal windows. 2. Normal left ventricular size, systolic function and wall thickness, with no regional wall motion abnormalities. Left ventricular ejection fraction is estimated at 65 %. Normal diastolic function. 3. Normal right ventricular size and systolic function. 4. Pulmonary artery pressure estimated at 32 mmHg. 5. No significant valvular abnormality based on the study. 6. No prior similar studies to compare. Margareth Reid MD (Electronically Signed) Final Date: 24 February 2021 14:02 S
--- NOTE | 2021-02-24 01:39 | PM.HP ---
Providers/Chief Complaint Admitting Physician: Maryann Aragon Primary Care Provider: Lacy Strange MD Chief Complaint: unresposive poss etoh History of Present Illness 70-year-old male with a past medical history significant for dementia dyslipidemia, gastroesophageal reflux disease, gout, hypertension, bladder cancer , peripheral vascular disease and alcoholism who was brought to hospital as Dr. he was found by his to be unresponsive . She stated that he recently started drinking alcohol again. Is not sure how much alcohol he consumed in the morning. He was difficult to arouse after he was found lying in the yd. Denied patient complaining of any symptoms prior to this. In route to hospital patient became alert and very agitated. He was given multiple doses of ketamine. Upon arrival was given benzodiazepine. At the time of my evaluation he was alert and awake however very confused. Attempted to ambulate however was Noted have unsteady gait. Laboratory workup Showed A WBC of 7.7, Hemoglobin 12.2, hematocrit 38.1 and Platelet count of 205 Sodium 138, potassium 3.5, chloride 106, bicarb 15, BUN 14 and creatinine of 1.2. Lipase 155 Urinalysis normal. Toxicology Was negative for Any drugs However ETOH Level was found to be elevated at 107. Head CT was performed which Showed Atrophy and old Lacunar Disease Without any evidence Of acute Intracranial abnormality. Patient did have a recent MRI of brain as part of workup for dementia on 02/02/2021 which has shown tiny amount of acute or subacute ischemia the dorsal cervical medullary junction measuring 4 mm in addition was noted to have chronic lacunar infarcts in the left caudate and left greater than right basal ganglia. Patient during this time did not have any motor sensory deficits. Review of Systems General: Reports: ROS unobtainable due to medical condition and ROS unobtainable due to mental status Medications/Allergies Home Medications Medication Instructions Recorded Confirmed Last Taken Type albuterol sulfate 90 mcg INHALATION QID 10/16/19 02/07/21 01/12/20 History allopurinol 100 mg PO DAILY 10/16/19 02/07/21 01/12/20 History amlodipine 10 mg PO DAILY 10/16/19 02/07/21 01/12/20 History fluticasone propionate 50 mcg INTRANASAL DAILY 10/16/19 02/07/21 01/12/20 History atorvastatin 10 mg tablet 20 mg PO BEDTIME tab 10/26/19 02/07/2120 History aspirin 81 mg tablet,delayed 81 mg PO DAILY 10/27/19 02/07/21 01/12/20 History release cetirizine 10 mg capsule 10 mg PO .prn cap 10/27/19 02/07/21 01/12/20 History donepezil 10 mg tablet 10 mg PO DAILY 10/27/19 02/07/21 01/12/20 History tramadol 50 mg tablet 50 mg PO Q6H PRN tab 10/27/19 02/07/21 01/12/20 History pantoprazole [Protonix] 40 mg PO DAILY 30 Days #30 tab 01/13/20 02/07/21 Unknown Rx pentoxifylline 400 mg 400 mg PO TID #90 tab 06/08/20 02/07/21 Unknown Rx tablet,extended release memantine 10 mg tablet 10 mg PO BID #60 tab 12/28/20 02/07/21 Unknown Rx Allergies Allergy/AdvReac Type Severity Reaction Status Date / Time Penicillins Allergy Severe ALGY-Swell Verified 02/07/21 16:01 Lip/Tongue/Throat clonidine Allergy Unknown ADR-Dizzine Verified 02/07/21 16:01 ss codeine Allergy Unknown ADR-Abdominal Verified 02/07/21 16:01 Pain metoprolol Allergy Unknown ADR-Dizzine Verified 02/07/21 16:01 ss Sulfa (Sulfonamide Allergy Unknown ADR-Cramping Verified 02/07/21 16:01 Antibiotics) of the Muscles Iodinated Contrast Media Allergy ALGY-Rash Verified 02/07/21 16:01 PFSH Acute PFSH: Medical History Cognitive impairment Dyslipidemia GERD (gastroesophageal reflux disease) Gout History of colon polyps History of nonmelanoma skin cancer HTN (hypertension) Hx of bladder cancer Hx of fracture of femur PVD (peripheral vascular disease) with claudication PATIENT STATES I HAVE 2 STENTS IN MY RIGHT LEG . DONE IN [facility] IN [facility] 'ABOUT TWO YEARS AGO . Seasonal allergies Smoker attempting to quit. states he smokes on/off every other day. Surgical History H/O vasectomy History of colonoscopy with polypectomy Hx of appendectomy Family History Mother CAD (coronary artery disease) Denies family history of Anesthesia complication Bleeding disorder Social History Smoking and tobacco status: current every day smoker cigarettes Packs smoked per day: 1.5 [ Other cigarette details: has smoked approx 55 yrs ] Quit status (tobacco): considering quitting Second hand smoke exposure: No (ATTEMPTING TO QUIT) Alcohol intake: never Lives independently: Yes Household members: spouse Marital status: Current occupational status: retired History of recent travel: No Current gender identity: Male Vitals/I&O/Wt Last Vital Signs Temp 97.7 F 02/23/21 20:59 Pulse 92 02/24/21 00:22 Resp 18 02/24/21 00:22 BP 153/89 02/24/21 00:22 Pulse Ox 98 02/24/21 00:22 Weight last 48 hrs Weight 74.843 kg Physical Exam Narrative: EXAM NARRATIVE: General- alert awake however very confused CVS- normal sinus rhythm Chest- nonlabored respiration Abdomen-nondistended Extremities- no edema Neuro- cranial nerves 2-12 intact, unsteady gait, motor strength 5/5 x4, no sensory deficit Data : 02/23/21 21:03 02/23/21 21:03 A&P Assessment and plan (1) Altered mental status: Status: Acute (2) Alcohol intoxication: Status: Acute Additional A&P Information Altered Mental status Etiology multifactorial Alcohol Likely contributed Head CT without any Acute abnormality No clear evidence Of infectious process Check ammonia level in a.m. Acute intoxication At risk for withdrawal CIWA protocol withP.r.n. Ativan Thiamine andFolate Seizure precautions Fall precautions DVT prophylaxis Heparin 5000 units q.12 Attestations Medical Necessity Statement*: Anticipate less than 2 midnight stay in hospital for evaluation and treatment of altered mental status and acute alcohol intoxication Time Spent in Patient Care: Greater than 35 minutes (>than 50% of time spent in counselling and/or direct pt care on unit). Coding Level of Care Code Acute Mortgage Operations Manager for Michele Andersen Diagnoses Altered mental status R41.82 Alcohol intoxication F10.929
[2021-02-24] MEDS: sodium chloride 0.9% 1,000 ML 75 ML IV (02:32)
[2021-02-24] MEDS: heparin 5,000 unit/mL INJ 1 mL 5000 UNIT SUBCUT (02:32)
[2021-02-24] MEDS: folic acid 1 mg Tablet PO (09:17)
[2021-02-24] MEDS: pantoprazole DR 40 mg Tablet PO (09:17)
[2021-02-24] MEDS: multivitamin therapeutic Tablet 1 TAB PO (09:17)
[2021-02-24] MEDS: thiamine 100 mg Tablet PO (09:17)
--- NOTE | 2021-02-24 10:07 | CT_ITS ---
WS: [id number] CT ABDOMEN PELVIS TECHNIQUE: Noncontrast CT of the abdomen and pelvis with coronal and sagittal reformatted images. CLINICAL INFORMATION: lipase elevation, no vomiting, smoker, history of cancer COMPARISON: None. DLP: 1014.[address] scans at [facility] use at least one of these dose optimization techniques: automat ed exposure control; mA and/or kV adjustment per patient size (includes targeted exams where dose is matched to clinical indication); or iterative reconstruction. FINDINGS: Noncontrast liver is normal. Gallbladder is contracted. No pericholecystic fluid. No intrahepatic coretta iary ductal dilatation. Noncontrast pancreas is normal. Normal pancreatic duct. Common bile duct appe ars normal. Markedly distended stomach with food products. Small esophageal hiatal hernia. Splenic granulomas. Ad renal glands are normal. Bilateral renal cysts largest on the right measuring 4.8 x 5.1 CM. Moderate aortic calcification. Small infrarenal abdominal aortic aneurysm measuring 2.7 x 2.2 cm AP by transve rse. Compressive atelectasis right lower lobe. Slight atelectasis left lower lobe. Stable calcification along left hemidiaphragm. Normal sigmoid colon. No evidence of small or large yomi wel obstruction. Tiny fat-containing umbilical hernia. No free fluid in the pelvis. No abdominal or p elvic lymphadenopathy. No inguinal lymphadenopathy. Disc space narrowing L5-S1. CT/CT abdomen pelvis wo con [id number] IMPRESSION: 1. Noncontrast liver is normal. Gallbladder is contracted. No intrahepatic coretta iary ductal dilatation. 2. Markedly distended stomach with food products and air-fluid levels. Small e sophageal hiatal hernia. 3. Compressive atelectasis right greater than left lower lobes. 4. Bilateral renal cysts largest in the right measuring 4.8 x 5.0 CM. No hydro nephrosis. 5. Small abdominal aortic aneurysm measuring 2.7 x 2.2 CM. 6. No other acute findings.
[2021-02-24 11:14] LABS: Troponin 5 6HR 12.82 ng/L (0-15)
[2021-02-24 11:16] LABS: Alanine Aminotransferase 19 U/L (0-41); Alkaline Phosphatase 107 IU/L (40-130); Anion Gap 15.7 (5-19); Aspartate Amino Transferase 22 U/L (0-40); Blood Urea Nitrogen 14 mg/dL (8-23); Calcium 8.4 mg/dL (8.5-10.5); Carbon Dioxide 23 mmol/L (22-29); Chloride 108 mmol/L (98-107); Globulin 2.8 g/dL (1.3-4.6); Glucose 78 mg/dL (65-115); Lipase 70 U/L (13-60); Osmolality Calculated 295 mOsm/kg (285-295); Potassium 3.7 mmol/L (3.5-5.1); Sodium 143 mmol/L (136-145); Total Bilirubin 0.4 mg/dL (0.15-1.2); Total Protein 6.8 g/dL (6.6-8.7)
--- NOTE | 2021-02-24 11:30 | PC.PHAR ---
pt states he takes care of his own medications-pt brought in med list-waiting for [facility] to fax med list
--- NOTE | 2021-02-24 16:21 | P.DS_ITS ---
Discharge Providers Date of Admission: 02/24/21 00:51 Date of Discharge: February 24, 2021 Attending Provider at Admission: Maryann Aragon Attending Provider at Discharge: David Black Primary Care Provider: Lacy Strange MD Diagnoses at Discharge Discharge Diagnosis (1) Altered mental status: Status: Acute (2) Alcohol intoxication: Status: Acute Reason for Visit Reason for Visit: unresposive poss etoh Hospital Course Hospital Course 70-year-old gentleman with cognitive impairment, history of frequent alcohol intake, but not recently, until last night when he had had some beer, also history of GERD, gout, HTN, bladder cancer, PVD, was hospitalized due to decreased responsiveness. Noted with alcohol intoxication, elevated EtOH level on presentation. Was treated with gentle IV hydration, Ativan as needed, althou gh did not show any signs of withdrawal after resolution of his symptoms and improvement in mental status. He was noted to have incidentally elevated lipase 155, although denied abdominal pain, nausea or vomiting. On repeat lipase had decreased to 70. He had tolerated oral intake. Ambulated. There is no recurrence of any mental status changes. He is asked to avoid any alcohol intake even small amount. Possibly early pancreatitis was considered. Does not fit criteria for pancreatitis otherwise. CT abdomen pelvis was obtained, showing normal noncontrast liver, gallbladder contracted, no intrahepatic biliary duct dilation. Markedly distended stomach with food products and air- fluid levels, small esophageal hiatal hernia. Compressive atelectasis right great note left lower lobe. Bilateral renal cysts, largest on the right measuring 4.8 x 5 cm. No hydronephrosis. Small abdominal aortic aneurysm 2.7 x 2.2 cm. He has had no evidence of acute infection. Ammonia was checked and was normal. Urinalysis was unremarkable. CT head with atrophy and old lacunar disease. No acute finding. Chronic lacunar infarcts recently noted on MRI, he is asked to continue aspirin, statin. On resolution of mental status changes, he has had no focal deficits. He is feeling much better, and would like to return home. At next visit please recheck lipase level, in case there is any concern regarding elevated lipase, or any symptoms of abdominal discomfort or other GI symptoms may be related to the pancreas, consider additional imaging with MRCP given long history of smoking, as well as prior history of other cancer including urinary bladder cancer to additionally assess for any possibility of pancreatic cancer. Discussed risks with him and his , strongly encouraged him to quit smoking in addition to avoiding any alcohol. He verbalized understanding. Physical Exam Const: COMMON NORMALS: no acute distress, patient oriented x3 and alert GENERAL APPEARANCE: cooperative and comfortable ORIENTATION/CONSCIOUSNESS: Yes awake HENMT: COMMON NORMALS: oropharynx normal Neck/C-Spine: COMMON NORMALS: no JVD Resp: COMMON NORMALS: normal respiratory effort and clear to auscultation bilaterally AUSCULTATION: clear to auscultation bilaterally Cardio: COMMON NORMALS: no JVD, regular rhythm, S1 normal heart sound present, S2 normal heart sound present and No murmurs present (Cardio) RHYTHM: regular rhythm HEART SOUNDS: S1 normal heart sound present and S2 normal heart sound present GI: COMMON NORMALS: Normal to inspection, nondistended, normoactive bowel sounds present, Soft to palpation and non-tender PALPATION: Yes Soft to palpation Extremity: COMMON NORMALS: no joint enlargement and no pedal edema Neuro: COMMON NORMALS: patient oriented x3 and moves all extremities SENSORIUM/ORIENTATION: Yes alert Skin: COMMON NORMALS: no rashes or lesions noted GENERAL SKIN EXAM: no rashes or lesions noted Discharge Data Data Completed and Pending: Completed Studies During Hospitalization Category Date Time Status CT abdomen pelvis wo con [id number] Rout ine Cat Scan 02/24/21 10:[address] head wo con* 7 [id number] Stat Cat Scan 02/23/21 21:06 Completed XR chest 1V mat ble [id number] Stat Exams 02/23/21 21:06 Completed CV. echo complete * [id number] Routine Ultrasound 02/24/21 01:36 Completed Pending at discharge Category Date Time Status Complete Blood Co unt w/Auto AM LABS Lab 02/25/21 04:00 Ordered Comprehensive Met abolic Panel AM LA BS Lab 02/25/21 04:00 Ordered Phosphorus AM LAB S Lab 02/25/21 04:00 Ordered Procalcitonin AM LABS Lab 02/25/21 04:00 Ordered Labs from last 24 hours 02/24/21 02/24/21 02/24/21 10:37 10:37 00:20 WBC RBC Hgb Hct MCV MCH MCHC RDW Plt Count MPV Neut % (Auto) Lymph % (Auto) Dundy % (Auto) Eos % (Auto) Baso % (Auto) Neut # (Auto) Lymph # (Auto) Dundy # (Auto) Eos # (Auto) Baso # (Auto) Nucleated RBC % (a uto) Nucleated RBCs # PT INR APTT Sodium 143 Potassium 3.7 Chloride 108 H Carbon Dioxide 23 Anion Gap 15.7 BUN 14 Creatinine 1.1 GFR Calculation Not Reportable Glucose 78 Calculated Osmolal ity 295 Calcium 8.4 L Total Bilirubin 0.4 AST 22 ALT 19 Alkaline Phosphata se 107 Ammonia Troponin T Baselin e Troponin T 120 Min [place] Delta Troponin T Troponin T Hi Sens 6Hr 12.82 Troponin T Hi Sens 6Hr Delta TNP NT-Pro-B Natriuret Pep Total Protein 6.8 Albumin 4.0 Globulin 2.8 Lipase 70 H Urine Color Urine Appearance Urine pH Ur Specific Gravit y Urine Protein Urine Glucose (UA) Urine Ketones Urine Blood Urine Nitrate Urine Bilirubin Urine Urobilinogen Ur Leukocyte Inge ase Urine Opiates Scre en Negative Acetaminophen Ur Barbiturates Sc reen Negative Ur Phencyclidine S crn Negative Ur Amphetamines Sc reen Negative U Benzodiazepines Scrn Negative Urine Cocaine Scre en Negative U Marijuana (THC) Screen Negative Ethyl Alcohol 02/24/21 02/23/21 02/23/21 00:20 23:10 21:03 WBC RBC Hgb Hct MCV MCH MCHC RDW Plt Count MPV Neut % (Auto) Lymph % (Auto) Dundy % (Auto) Eos % (Auto) Baso % (Auto) Neut # (Auto) Lymph # (Auto) Dundy # (Auto) Eos # (Auto) Baso # (Auto) Nucleated RBC % (a uto) Nucleated RBCs # PT INR APTT Sodium Potassium Chloride Carbon Dioxide Anion Gap BUN Creatinine GFR Calculation Glucose Calculated Osmolal ity Calcium Total Bilirubin AST ALT Alkaline Phosphata se Ammonia Troponin T Baselin e 12 Troponin T 120 Min [place] 13.50 Delta Troponin T 1.50 Troponin T Hi Sens 6Hr Troponin T Hi Sens 6Hr Delta NT-Pro-B Natriuret Pep Total Protein Albumin Globulin Lipase Urine Color Yellow Urine Appearance Clear Urine pH 5 Ur Specific Gravit y 1.005 Urine Protein Neg Urine Glucose (UA) Norm Urine Ketones Negative Urine Blood Neg Urine Nitrate Negative Urine Bilirubin Neg Urine Urobilinogen Norm Ur Leukocyte Inge ase Negative Urine Opiates Scre en Acetaminophen Ur Barbiturates Sc reen Ur Phencyclidine S crn Ur Amphetamines Sc reen U Benzodiazepines Scrn Urine Cocaine Scre en U Marijuana (THC) Screen Ethyl Alcohol 02/23/21 02/23/21 02/23/21 21:03 21:03 21:03 WBC 7.7 RBC 4.08 L Hgb 12.2 Hct 38.1 L MCV 93.4 MCH 29.9 MCHC 32.0 RDW 19.1 H Plt Count 205 MPV 9.2 Neut % (Auto) 46.1 Lymph % (Auto) 37.9 Dundy % (Auto) 10.1 Eos % (Auto) 4.6 Baso % (Auto) 1.0 Neut # (Auto) 3.53 Lymph # (Auto) 2.9 Dundy # (Auto) 0.8 Eos # (Auto) 0.4 Baso # (Auto) 0.1 Nucleated RBC % (a uto) 0 Nucleated RBCs # 0.0 PT 13.70 INR 1.02 APTT 30.6 Sodium 138 Potassium 3.5 Chloride 106 Carbon Dioxide 15 L Anion Gap 20.5 H BUN 14 Creatinine 1.2 GFR Calculation Not Reportable Glucose 69 Calculated Osmolal ity 285 Calcium 7.8 L Total Bilirubin 0.2 AST 24 ALT 19 Alkaline Phosphata se 94 Ammonia Troponin T Baselin e Troponin T 120 Min [place] Troponin T Troponin T Hi Sens 6Hr Troponin T Hi Sens 6Hr Delta NT-Pro-B Natriuret Pep 76 Total Protein 6.1 L Albumin 4.0 Globulin 2.1 Lipase 155 H Urine Color Urine Appearance Urine pH Ur Specific Gravit y Urine Protein Urine Glucose (UA) Urine Ketones Urine Blood Urine Nitrate Urine Bilirubin Urine Urobilinogen Ur Leukocyte Inge ase Urine Opiates Scre en Acetaminophen < 5.0 L Ur Barbiturates Sc reen Ur Phencyclidine S crn Ur Amphetamines Sc reen U Benzodiazepines Scrn Urine Cocaine Scre en U Marijuana (THC) Screen Ethyl Alcohol 107 H 02/23/21 21:03 WBC RBC Hgb Hct MCV MCH MCHC RDW Plt Count MPV Neut % (Auto) Lymph % (Auto) Dundy % (Auto) Eos % (Auto) Baso % (Auto) Neut # (Auto) Lymph # (Auto) Dundy # (Auto) Eos # (Auto) Baso # (Auto) Nucleated RBC % (a uto) Nucleated RBCs # PT INR APTT Sodium Potassium Chloride Carbon Dioxide Anion Gap BUN Creatinine GFR Calculation Glucose Calculated Osmolal ity Calcium Total Bilirubin AST ALT Alkaline Phosphata se Ammonia 39 Troponin T Baselin e Troponin T 120 Min [place] Troponin T Troponin T Hi Sens 6Hr Troponin T Hi Sens 6Hr Delta NT-Pro-B Natriuret Pep Total Protein Albumin Globulin Lipase Urine Color Urine Appearance Urine pH Ur Specific Gravit y Urine Protein Urine Glucose (UA) Urine Ketones Urine Blood Urine Nitrate Urine Bilirubin Urine Urobilinogen Ur Leukocyte Inge ase Urine Opiates Scre en Acetaminophen Ur Barbiturates Sc reen Ur Phencyclidine S crn Ur Amphetamines Sc reen U Benzodiazepines Scrn Urine Cocaine Scre en U Marijuana (THC) Screen Ethyl Alcohol Vitals: Last Vital Signs Temp 98.1 F 02/24/21 11:58 Pulse 75 02/24/21 11:58 Resp 18 02/24/21 11:58 BP 138/63 02/24/21 11:58 Pulse Ox 95 02/24/21 11:58 Discharge Plan Discharge Patient Disposition: Home Condition: Stable Prescriptions: New folic acid 1 mg Tablet 1 mg PO DAILY Qty: 30 RF: 0 multivitamin with folic acid [Thera] 400 mcg Tablet 1 tab PO DAILY Qty: 30 RF: 0 thiamine mononitrate (vit B1) [Vitamin B-1 (mononitrate)] 100 mg Tablet 100 mg PO DAILY Qty: 30 RF: 0 Continued donepezil 10 mg tablet 10 mg PO BEDTIME RF: 0 aspirin [Aspirin Low Dose] 81 mg tablet,delayed release (DR/EC) 81 mg PO QAM RF: 0 tramadol 50 mg tablet 50 mg PO QID PRN (Reason: Pain) RF: 0 Zyrtec 10 mg capsule 10 mg PO DAILY RF: 0 pentoxifylline 400 mg tablet extended release 400 mg PO TID Qty: 90 RF: 0 memantine [Namenda] 10 mg tablet 10 mg PO BID Qty: 60 RF: 6 pantoprazole [Protonix] 40 mg tablet,delayed release (DR/EC) 40 mg PO DAILY 30 Days Qty: 30 RF: 2 Lipitor 80 mg Tablet 40 mg PO BEDTIME RF: 0 CoQ-10 100 mg Capsule 100 mg PO DAILY RF: 0 allopurinol 100 mg tablet 100 mg PO DAILY PRN (Reason: gout) RF: 0 amlodipine 10 mg tablet 10 mg PO QAM RF: 0 albuterol sulfate 90 mcg/actuation HFA aerosol inhaler 2 puff inhalation Q4H PRN (Reason: Shortness Of Breath) RF: 0 fluticasone propionate [Flonase Allergy Relief] 50 mcg/actuation spray,suspension 1 spray INTRANASAL DAILY RF: 0 Discharge Orders: Discharge Order (Routine); Ordered 02/24/21 Ordered By: David Black Referrals: Lacy Strange MD [Primary Care Provider] - 4-7 days Discharge Diet: Advance as tolerated Patient Instructions: Opioid Safety Activity Restrictions/Additional Instructions: Please follow up with your primary doctor regarding your admission. Mild elevation of lipase up to 155. This is since normalized. Please avoid any alcohol, as it is suspected this may have caused possibly very early/mild pancreatitis. Please discuss with your primary doctor as you are at risk of a number of different cancers due to long history of smoking. The pancreas did appear normal on CT but the CT was without contrast, and may not provide full detail. Please have your primary doctor repeat lipase. In case there is elevation, consider referral for evaluation with MRI. Please discuss with your primary provider incidental findings noted on CT of abdomen pelvis, with small abdominal aortic aneurysm of 2.7 x 2.2 cm. Bilateral renal cysts largest on the right 4.8 x 5 cm, no hydronephrosis. Atelectasis in lower lungs. Incidentally seen distention of the stomach with food products. Small hiatal hernia. Please discuss also consideration for additional nonurgent assessment for gastroparesis. Discharge Attestations Time Spent in Discharge Care*: greater than 30 min Quality Metrics Clinical Quality Measures During this hospital stay, did patient experience: None Coding Level of Care Code Acute Chg [facility] note Diagnoses Altered mental status R41.82 Alcohol intoxication F10.929
--- NOTE | 2021-02-24 17:19 | PC.RESP ---
SMOKING CESSATION INFORMATION SENT TO PATIENT.
== END 2021-02-24 17:00 | disposition home or self-care (01) ==
LOC: ER 23:53 → MEDSURG 02-24 00:52
PROVIDERS: Admitting Provider Hospitalist; Emergency Provider Emergency Medicine; PCP Family Medicine; Visit Provider Internal Medicine
DX: R41.82 Altered mental status, unspecified (principal); F10.929 Alcohol use, unspecified with intoxication, unspecified; K21.9 Gastro-esophageal reflux disease without esophagitis; I10 Essential (primary) hypertension; Z85.51 Personal history of malignant neoplasm of bladder; F03.90 Unspecified dementia, unspecified severity, without behavioral disturbance, psychotic disturbance, mood disturbance, and anxiety; E78.5 Hyperlipidemia, unspecified; Z79.82 Long term (current) use of aspirin; F17.210 Nicotine dependence, cigarettes, uncomplicated
CPT/HCPCS: 36415; 70450; 71045; 74176; 80053; 80306; 80307; 81003; 82140; 83690; 83880; 84484; 85025; 85610; 85730; 93005; 93306; 96361; 96372; 96374; 97161; 99285; G0378; J1644; J2060; J3411; J7030

== ENCOUNTER 2021-06-08 08:06 | Outpatient (CLI) | payer OTHER, SELFPAY ==
--- NOTE | 2021-06-08 08:00 | NM_ITS ---
WS: [id number] NUCLEAR MEDICINE GASTRIC STUDY CLINICAL INFORMATION: R10.9 - Unspecified abdominal pain TECHNIQUE: Following oral ingestion of cooked egg mixed with 0.95 mCi technetium 99m sulfur colloid, anterior images of the stomach were obtained over the course of 90 minutes. Activity curve was perfor med over the course of 90 minutes with linear regression analysis. COMPARISON: None. FINDINGS: Oral ingestion of cooked egg mixture. 52% emptying at 60 minutes. T1 half is 56 minutes. NM/[place] [id number] IMPRESSION: Normal gastric emptying. *Normal median T1 half 90 minutes for solid egg meal (45-110 minutes). Delayed gastric retention is defined as 90% retained at 1 hour, 60% at 2 hour s, 30% at 3 hours, and 10% at 4 hours (normal percent gastric retention is 37-9 0% at 1 hour, 30-60% at 2 hours, and 0-10% at 4 hours).
== END 2021-06-08 08:07 | disposition home or self-care (01) ==
PROVIDERS: PCP Family Medicine; Visit Provider Surgery
DX: R10.9 Unspecified abdominal pain (principal)
CPT/HCPCS: 78264; A9541

== ENCOUNTER 2021-12-18 12:23 | Emergency (ER) | payer OTHER, MEDICARE, SELFPAY ==
[2021-12-18 12:44] VITALS: BP 147/85; PULSE 85; RESP 16; TEMP 36.8; O2SAT 96; BMI 22.6
--- NOTE | 2021-12-18 12:52 | W.ED.BACK ---
Documented by User: JEN Stewart 12/19/21 07:11 HPI - Back Pain/Injury General: Chief Complaint: Back Pain/Injury Stated Complaint: Lower Back Time Seen by Provider: 12/18/21 12:49 Source: patient Mode of arrival: ambulatory Limitations: no limitations History of Present Illness: Patient is a nice 71-year-old male who presents to ED today with a complaint of lower back pain. Patient tells me about 8 or 9 days ago he was weed eating around his 's giang when he stepped backwards into a gopher hole . He states he then stumbled backwards but was able to catch himself. He does feel like he heard a pop in his lower back and has had pain since. Patient states pain is localized to the middle of his lower back with no radiation into his lower extremities. He denies saddle anesthesia or any issues with bowel or bladder incontinence/retention. Patient continues to be ambulatory. He is not having any pain in his abdomen or chest. Patient states [facility] and told to come to the emergency department for further evaluation. MD elicited complaint: back pain Pertinent past history: recent trauma Onset (ago): day(s) Timing: constant Severity: moderate Similar Symptoms Previously: No Location: lumbar spine Radiation: none Exacerbating factors: walking Relieving factors: none Associated symptoms: Reports no associated symptoms; Deny abdominal pain, chills, difficulty walking, dysuria, fatigue, fever(s), hematuria or syncope Review of Systems Const: Denies: fever(s), chills, body aches, fatigue or malaise Card: Denies: chest pain, palpitations, lightheadedness, syncope or pre-syncope Resp: Denies: dyspnea GI: Denies: abdominal pain : Denies: flank pain, dysuria or hematuria Musc: Reports: back pain; Denies: neck pain, extremity pain or joint pain Skin/Breast: Denies: rash Neuro: Denies: headache(s), numbness in extremities, weakness in extremities, sensory changes or difficulty walking PFSH ED PFSH: Medical History Cognitive impairment Dyslipidemia GERD (gastroesophageal reflux disease) Gout History of colon polyps History of dementia History of nonmelanoma skin cancer HTN (hypertension) Hx of bladder cancer Hx of fracture of femur PVD (peripheral vascular disease) with claudication PATIENT STATES I HAVE 2 STENTS IN MY RIGHT LEG . [facility] . Seasonal allergies Smoker attempting to quit. states he smokes on/off every other day. Surgical History H/O vasectomy History of colonoscopy with polypectomy Hx of appendectomy Family History Mother CAD (coronary artery disease) Denies family history of Anesthesia complication Bleeding disorder Social History Smoking and tobacco status: current every day smoker cigarettes Packs smoked per day: 1.5 [ Other cigarette details: has smoked approx 55 yrs] Quit status (tobacco): considering quitting Second hand smoke exposure: No (ATTEMPTING TO QUIT) Alcohol intake: never Lives independently: Yes Household members: spouse Marital status: Current occupational status: retired History of recent travel: No Current gender identity: Male Physical Exam Const: COMMON NORMALS: no acute distress, patient oriented x3, no limitations, alert and well nourished GENERAL APPEARANCE: cooperative ORIENTATION/CONSCIOUSNESS: Yes awake, Yes oriented to person, Yes oriented to place and Yes oriented to time HENMT: COMMON NORMALS: normocephalic and atraumatic HEAD & SCALP: normocephalic and atraumatic Neck/C-Spine: COMMON NORMALS: full ROM CERVICAL SPINE: Yes cervical ROM normal, No pain with cervical ROM, No Cervical spine tenderness, No step off deformity and No Paracervical muscle tenderness Chest: COMMONS NORMALS: normal inspection of the chest and normal palpation of entire chest wall Resp: COMMON NORMALS: normal respiratory effort and clear to auscultation bilaterally AUSCULTATION: clear to auscultation bilaterally Cardio: COMMON NORMALS: regular rate and regular rhythm RATE: regular rate RHYTHM: regular rhythm GI: COMMON NORMALS: Normal to inspection, nondistended, normoactive bowel sounds present, Soft to palpation, non-tender and no masses PALPATION: Yes Soft to palpation : COMMON NORMALS: Yes no CVA tenderness BLADDER/KIDNEY EXAM: Yes no CVA tenderness Back/Pelvis: COMMON NORMALS: no CVA tenderness THORACIC SPINE/UPPER BACK: Yes normal to inspection, Yes thoracic ROM normal, No thoracic spinal tenderness, No paraspinal muscle tenderness and No paraspinal muscle spasm LUMBAR SPINE/LOWER BACK: Yes normal to inspection, Yes pain with ROM, Yes lumbar spinal tenderness (TTP mid to lower L spine), No paraspinal muscle tenderness and No paraspinal muscle spasm PELVIS: Yes buttocks normal SACROILIAC JOINTS: Yes SI joints normal SACRUM: no tenderness COCCYX: no tenderness Extremity: COMMON NORMALS: normal to inspection GENERAL: Yes normal exam except as noted Neuro: DANIELE COMA SCALE: document GCS findings [place] coma scale eye opening: Spontaneous [place] coma scale verbal response: Orientated [place] coma scale motor response: Obey commands [place] coma scale total score: 15 COMMON NORMALS: patient oriented x3, moves all extremities, no focal motor deficits, no sensory deficits noted and gait normal SENSORIUM/ORIENTATION: Yes alert, Yes oriented to person, Yes oriented to place and Yes oriented to time Skin: COMMON NORMALS: no rashes or lesions noted GENERAL SKIN EXAM: no rashes or lesions noted Course ED course: Patient CT report showing mild inflammatory stranding about the L4-L5 and L5-S1 vertebral bodies with recommendation for MRI with and without contrast to exclude discitis. I spoke to radiologist Dr. Johns directly in regards to patient's history and mechanism of injury. He stated that inflammatory/edema could be secondary to recent disc bulge which would fit more clinically. Patient is not running fevers. He has no risk factors for discitis (no recent infections/illness, hospitalizations, invasive procedures, drug use, etc) . We will go ahead and obtain CBC and inflammatory markers and if negative will discharge patient home [facility] Vital Signs: Vital signs: Vital Signs Temperature 98.2 F 12/18/21 12:44 Pulse Rate 85 12/18/21 12:56 Respiratory Rate 16 12/18/21 12:56 Blood Pressure 147/85 12/18/21 12:56 Pulse Oximetry 96 12/18/21 12:56 MDM - Back Pain/Injury Medical Decision Making Patient is a nice 71-year-old male who presents to ED today with a complaint of lower back pain. Patient tells me he normally has lower back pain chronically but states lower back is hurting worse following a trip and fall backwards approximately 8 to 9 days ago. He denies any direct injury or trauma to his back but states that he stumbled and heard a pop . CT imaging obtained which showed some nonspecific inflammatory stranding to his lower L-spine that the radiologist said could be secondary to a possible discitis. Certainly this would not fit patient's history. I did speak to the radiologist directly who stated that the inflammation could be secondary to the disc bulge present at that area and findings were not exclusively seen with discitis. Patient's blood work shows a normal white count and a normal CRP. ESR is mildly elevated. Spoke with Dr. Gomez who agrees that patient is stable for discharge at this time with [facility]. Patient made aware of CT findings and the recommendations to [facility] this [facility]. Labs : 12/18/21 16:37 Radiology Impressions Lumbar Spine CT 12/18/21 12:59 IMPRESSION: 1. Mild lumbar curve. No acute compression. 2. Disc space narrowing worse L5-S1. 3. Mild to moderate central canal stenosis due to central disc bulging L4-L5 with impingement traversing L5 nerve roots bilaterally. Findings can be further evaluated MRI. 4. Mild central canal stenosis L2-L3 and L3-L4. 5. Moderate bilateral L4-L5 foraminal narrowing LEFT greater than RIGHT. 6. MILD INFLAMMATORY STRANDING ABOUT THE L4-L5 AND L5-S1 VERTEBRAL BODIES. RECOMMEND FOLLOW-UP WITH MRI WITHOUT AND WITH GADOLINIUM TO EXCLUDE DISCITIS. Attempted notification JEN Stewart at 12/18/2021 3:09 PM. Laboratory Results WBC 8.9 10^3/uL (4.0-10.0) 12/18/21 16:37 RBC 4.68 10^6/uL (4.1-5.3) 12/18/21 16:37 Hgb 14.7 g/dL (11.7-16.6) 12/18/21 16:37 Hct 43.4 % (42.0-52.0) 12/18/21 16:37 MCV 92.7 fl (80-94) 12/18/21 16:37 MCH 31.4 pg (28.0-34.0) 12/18/21 16:37 MCHC 33.9 g/dL (30.0-36.0) 12/18/21 16:37 RDW 15.5 % (12.1-15.1) H 12/18/21 16:37 Plt Count 200 10^3/cmm (130-400) 12/18/21 16:37 MPV 9.0 fL (7.4-10.4) 12/18/21 16:37 Neut % (Auto) 65.1 % 12/18/21 16:37 Lymph % (Auto) 23.8 % 12/18/21 16:37 [place] % (Auto) 6.7 % 12/18/21 16:37 Eos % (Auto) 3.2 % 12/18/21 16:37 Baso % (Auto) 0.6 % 12/18/21 16:37 Neut # (Auto) 5.79 10^3/uL (1.8-7.7) 12/18/21 16:37 Lymph # (Auto) 2.1 10^3/uL (0.8-4.8) 12/18/21 16:37 [place] # (Auto) 0.6 10^3/uL (0.2-0.9) 12/18/21 16:37 Eos # (Auto) 0.3 10^3/uL (0.0-0.8) 12/18/21 16:37 Baso # (Auto) 0.1 10^3/uL (0.0-0.1) 12/18/21 16:37 Nucleated RBC % (auto) 0 % 12/18/21 16:37 Nucleated RBCs # 0.0 /100WBC 12/18/21 16:37 ESR 26 mm/hr (0-10) H 12/18/21 16:37 C-Reactive Protein 4.3 mg/L (0.0-4.9) 12/18/21 16:37 Discharge Plan Discharge Patient Disposition: Home Clinical Impression: Acute exacerbation of chronic low back pain, Bulging lumbar disc Condition: Stable Prescriptions: No Action donepezil 10 mg tablet 10 mg PO BEDTIME 0RF aspirin [Aspirin Low Dose] 81 mg tablet,delayed release (DR/EC) 81 mg PO QAM 0RF tramadol 50 mg tablet 50 mg PO QID PRN (Reason: Pain) 0RF Zyrtec 10 mg capsule 10 mg PO DAILY 0RF pentoxifylline 400 mg tablet extended release 400 mg PO TID Qty: 90 0RF Rx Instructions: administer with meals memantine [Namenda] 10 mg tablet 10 mg PO BID Qty: 60 6RF Rx Instructions: @06:00,14:00 pantoprazole [Protonix] 40 mg tablet,delayed release (DR/EC) 40 mg PO DAILY 30 Days Qty: 30 2RF Lipitor 80 mg Tablet 40 mg PO BEDTIME 0RF CoQ-10 100 mg Capsule 100 mg PO DAILY 0RF folic acid 1 mg Tablet 1 mg PO DAILY Qty: 30 0RF Vitamin B-1 (mononitrate) 100 mg Tablet 100 mg PO DAILY Qty: 30 0RF Thera 400 mcg Tablet 1 tab PO DAILY Qty: 30 0RF allopurinol 100 mg tablet 100 mg PO DAILY PRN (Reason: gout) 0RF amlodipine 10 mg tablet 10 mg PO QAM 0RF albuterol sulfate 90 mcg/actuation HFA aerosol inhaler 2 puff inhalation Q4H PRN (Reason: Shortness Of Breath) 0RF fluticasone propionate [Flonase Allergy Relief] 50 mcg/actuation spray,suspension 1 spray INTRANASAL DAILY 0RF Discharge Orders: Discharge ED (Routine); Ordered 12/18/21 Ordered By: Monique Ritchie Referrals: Lacy Strange MD [Primary Care Provider] - Coding Level of Care Code ED Purchase Request Editor for Chg Fwd Exam Comprehensive Documented by User: Doug Gomez DO 12/19/21 07:43 HPI - Back Pain/Injury General: Chief Complaint: Back Pain/Injury Stated Complaint: Lower Back Time Seen by Provider: 12/18/21 12:49 PFSH ED PFSH: Medical History Cognitive impairment Dyslipidemia GERD (gastroesophageal reflux disease) Gout History of colon polyps History of dementia History of nonmelanoma skin cancer HTN (hypertension) Hx of bladder cancer Hx of fracture of femur PVD (peripheral vascular disease) with claudication PATIENT STATES I HAVE 2 STENTS IN MY RIGHT LEG . [facility] . Seasonal allergies Smoker attempting to quit. states he smokes on/off every other day. Surgical History H/O vasectomy History of colonoscopy with polypectomy Hx of appendectomy Family History Mother CAD (coronary artery disease) Denies family history of Anesthesia complication Bleeding disorder Social History Smoking and tobacco status: current every day smoker cigarettes Packs smoked per day: 1.5 [ Other cigarette details: has smoked approx 55 yrs] Quit status (tobacco): considering quitting Second hand smoke exposure: No (ATTEMPTING TO QUIT) Alcohol intake: never Lives independently: Yes Household members: spouse Marital status: Current occupational status: retired History of recent travel: No Current gender identity: Male Physical Exam Neuro: DANIELE COMA SCALE: document GCS findings [place] coma scale total score: 15 Course Vital Signs: Vital signs: Vital Signs Temperature 98.2 F 12/18/21 12:44 Pulse Rate 85 12/18/21 12:56 Respiratory Rate 16 12/18/21 12:56 Blood Pressure 147/85 12/18/21 12:56 Pulse Oximetry 96 12/18/21 12:56 MDM - Back Pain/Injury Medical Decision Making Patient is a nice 71-year-old male who presents to ED today with a complaint of lower back pain. Patient tells me he normally has lower back pain chronically but states lower back is hurting worse following a trip and fall backwards approximately 8 to 9 days ago. He denies any direct injury or trauma to his back but states that he stumbled and heard a pop . CT imaging obtained which showed some nonspecific inflammatory stranding to his lower L-spine that the radiologist said could be secondary to a possible discitis. Certainly this would not fit patient's history. I did speak to the radiologist directly who stated that the inflammation could be secondary to the disc bulge present at that area and findings were not exclusively seen with discitis. Patient's blood work shows a normal white count and a normal CRP. ESR is mildly elevated. Spoke with Dr. Gomez who agrees that patient is stable for discharge at this time [facility]. Patient made aware of CT findings and the recommendations to [facility] this [facility]. Chart reviewed and patient discussed with midlevel. Agree with assessment and plan. Labs : 12/18/21 16:37 Radiology Impressions Lum[address] Spine [address] 12/18/21 12:59
[2021-12-18 12:56] VITALS: BP 147/85; PULSE 85; RESP 16; O2SAT 96
--- NOTE | 2021-12-18 12:59 | CT_ITS ---
WS: [id number] CT LUMBAR SPINE TECHNIQUE: Noncontrast CT of the lumbar spine with coronal and sagittal reformatted images. CLINICAL INFORMATION: back pain/injury COMPARISON: None. DLP: 2282.[address] scans at [facility] use at least one of these dose optimization techniques: automated e xposure control; mA and/or kV adjustment per patient size (includes targeted exams where dose is matc hed to clinical indication); or iterative reconstruction. FINDINGS: Mild lumbar curve. No acute compression. Disc space narrowing worse at L5-S1. Mild inflammatory stran ding about the L4-L5 and L5-S1 vertebral bodies. Recommend follow-up with MRI without and with gadoli nium to exclude discitis. L1-L2: Normal. L2-L3: Slight retrolisthesis. Mild annular bulging with slight effacement of ventral thecal sac. Fora men are patent. Mild facet arthropathy. L3-L4: Mild annular bulging with slight narrowing of the subarticular recess bilaterally. Mild facet arthropathy. Mild bilateral foraminal narrowing greater on the LEFT. L4-L5: Shallow central disc bulging with mild to moderate central canal stenosis. Slight impingement traversing L5 nerve roots bilaterally. Moderate facet arthropathy. Moderate bilateral foraminal narro wing LEFT greater than RIGHT. L5-S1: Mild annular bulging with slight effacement of ventral thecal sac. Endplate osteophytic ridgin g. Mild bilateral foraminal narrowing. Moderate facet arthropathy. Adrenal glands are normal. RIGHT greater than LEFT renal cysts. Abdominal aortic aneurysm appears sta ble compared to February 24, 2021 measuring 2.[address]/CT lumbar spine wo con* [id number] IMPRESSION: 1. Mild lumbar curve. No acute compression. 2. Disc space narrowing worse L5-S1. 3. Mild to moderate central canal stenosis due to central disc bulging L4-L5 w ith impingement traversing L5 nerve roots bilaterally. Findings can be further evaluated MRI. 4. Mild central canal stenosis L2-L3 and L3-L4. 5. Moderate bilateral L4-L5 foraminal narrowing LEFT greater than RIGHT. 6. MILD INFLAMMATORY STRANDING ABOUT THE L4-L5 AND L5-S1 VERTEBRAL BODIES. REC OMMEND FOLLOW-UP WITH MRI WITHOUT AND WITH GADOLINIUM TO EXCLUDE DISCITIS. Attempted notification JEN Stewart at 12/18/2021 3:09 PM.
[2021-12-18 16:44] LABS: Basophils # 0.1 10^3/uL (0.0-0.1); Basophils % 0.6 %; Eosinophils # 0.3 10^3/uL (0.0-0.8); Eosinophils % 3.2 %; Hematocrit 43.4 % (42.0-52.0); Hemoglobin 14.7 g/dL (11.7-16.6); Lymphocytes # 2.1 10^3/uL (0.8-4.8); Lymphocytes % 23.8 %; Mean Corpuscular HGB Conc 33.9 g/dL (30.0-36.0); Mean Corpuscular Hemoglobin 31.4 pg (28.0-34.0); Mean Corpuscular Volume 92.7 fl (80-94); Monocytes # 0.6 10^3/uL (0.2-0.9); Monocytes % 6.7 %; Neutrophils # 5.79 10^3/uL (1.8-7.7); Neutrophils % 65.1 %; Nucleated Red Blood Cells % 0 %; Platelet Count 200 10^3/cmm (130-400); Red Blood Count 4.68 10^6/uL (4.1-5.3); Red Cell Distribution Width 15.5 % (12.1-15.1); White Blood Count 8.9 10^3/uL (4.0-10.0)
[2021-12-18 16:53] LABS: Erythrocyte Sedimentation Rate 26 mm/hr (0-10)
[2021-12-18 17:07] LABS: C Reactive Protein 4.3 mg/L (0.0-4.9)
== END 2021-12-18 17:17 | disposition home or self-care (01) ==
PROVIDERS: Emergency Provider Physician Assistant; PCP Family Medicine
DX: M51.26 Other intervertebral disc displacement, lumbar region (principal); G89.29 Other chronic pain
CPT/HCPCS: 72131; 85025; 85651; 86140; 99283

== ENCOUNTER → 2021-12-26 15:02 | Outpatient (BNVA) | payer OTHER, MEDICARE, SELFPAY | PROVIDERS: PCP Family Medicine; Referring Provider Family Medicine; Visit Provider Physician Assistant | DX: M51.36 Other intervertebral disc degeneration, lumbar region (principal); I73.9 Peripheral vascular disease, unspecified; M47.816 Spondylosis without myelopathy or radiculopathy, lumbar region | CPT/HCPCS: 72110; 99204 ==

== ENCOUNTER → 2022-02-15 08:56 | Outpatient (BNVA) | payer OTHER, SELFPAY | PROVIDERS: PCP Family Medicine; Visit Provider Anesthesiology Pain Medicine | DX: M47.816 Spondylosis without myelopathy or radiculopathy, lumbar region (principal); M51.36 Other intervertebral disc degeneration, lumbar region; I73.9 Peripheral vascular disease, unspecified; F17.210 Nicotine dependence, cigarettes, uncomplicated; Z79.891 Long term (current) use of opiate analgesic | CPT/HCPCS: 99205 ==

== ENCOUNTER → 2022-03-05 13:42 | Outpatient (BNVA) | payer OTHER, SELFPAY | PROVIDERS: PCP Family Medicine; Visit Provider Anesthesiology Pain Medicine | DX: F17.210 Nicotine dependence, cigarettes, uncomplicated (principal); Z79.891 Long term (current) use of opiate analgesic; M47.816 Spondylosis without myelopathy or radiculopathy, lumbar region | CPT/HCPCS: 64493; 64494; 64495; J3490 ==

== ENCOUNTER → 2022-03-19 13:50 | Outpatient (BNVA) | payer OTHER, SELFPAY | PROVIDERS: PCP Family Medicine; Visit Provider Anesthesiology Pain Medicine | DX: F17.210 Nicotine dependence, cigarettes, uncomplicated (principal); Z79.891 Long term (current) use of opiate analgesic; M47.816 Spondylosis without myelopathy or radiculopathy, lumbar region | CPT/HCPCS: 64493; 64494; 64495 ==

== ENCOUNTER → 2022-04-03 10:56 | Outpatient (BNVA) | payer OTHER, SELFPAY | PROVIDERS: PCP Family Medicine; Visit Provider Anesthesiology Pain Medicine | DX: M47.816 Spondylosis without myelopathy or radiculopathy, lumbar region (principal); M51.36 Other intervertebral disc degeneration, lumbar region; I73.9 Peripheral vascular disease, unspecified; M79.604 Pain in right leg; M79.605 Pain in left leg; F17.210 Nicotine dependence, cigarettes, uncomplicated; Z79.891 Long term (current) use of opiate analgesic | CPT/HCPCS: 99214 ==

== ENCOUNTER 2023-04-09 14:05 | Emergency (ER) | payer OTHER, SELFPAY ==
[2023-04-09 14:10] VITALS: BP 162/77; PULSE 93; RESP 16; TEMP 36.4; O2SAT 96; BMI 23.2
--- NOTE | 2023-04-09 14:22 | XRR_ITS ---
PROCEDURE INFORMATION: Exam: XR Lumbosacral Spine Exam date and time: 04/09/2023 2:25 PM Age: 72 years old Clinical indication: Low back pain TECHNIQUE: Imaging protocol: Radiologic exam of the lumbosacral spine. Views: 2 or 3 views. COMPARISON: CR XR lumbar spine min 4V [id number] 12/26/2021 3:14 PM FINDINGS: Bones/joints: Spinal alignment is normal. Vertebral body height is maintained. No acute fracture. Moderate disc narrowing at L4-L5 and L5-S1. Moderate facet spondylosis bilaterally from L3 through S1. No acute fracture. Extensive calcification of distal abdominal aorta and iliac arteries. The visible portion of the pelvis and sacrum is intact. No spinal fracture is visible. Visible portions of the ribs are intact. Soft tissues: Unremarkable. XR/XR lumbar spine 2-3V* [id number] IMPRESSION: Lumbar disc and facet degeneration, similar to the findings on 12/26/2021.
--- NOTE | 2023-04-09 14:54 | W.ED.BACK ---
HPI - Back Pain/Injury General: Chief Complaint: Back Pain/Injury Stated Complaint: lower back pain Time Seen by Provider: 04/09/23 14:36 History of Present Illness: 72-year-old male presents to the emergency room with complaints of low back pain. This for a long time issue for him he had similar complaint approximately a year ago. He said CT a year ago that showed moderate canal stenosis with some central disc bulging. They recommended an MRI he has not had an MRI to this point. Does not had any fever sweats or chills no recent trauma. MD elicited complaint: back pain Pertinent past history: prior back pain Onset (ago): month(s) (4) Timing: intermittent Severity: mild Quality: aching Location: lumbar spine Radiation: none Exacerbating factors: none, movement, walking and lifting Relieving factors: none Associated symptoms: Deny abdominal pain, arthralgias, chills, change in bowel habits, difficulty walking, dysuria, fatigue, fecal incontinence, fever(s), hematuria, myalgias, nausea, numbness, syncope, tingling/numbness/burning, urinary frequency, urinary urgency, vomiting or weakness Review of Systems Const: Denies: fever(s), chills or fatigue ENMT: Denies: throat pain, ear or mastoid pain, nasal discharge or nasal congestion Card: Denies: syncope Resp: Denies: dyspnea, productive cough or non-productive cough GI: Denies: abdominal pain, nausea, vomiting, fecal incontinence or change in bowel habits : Denies: dysuria, urinary urgency or hematuria Skin/Breast: Denies: rash or pruritus Neuro: Denies: difficulty walking PFSH ED PFSH: Medical History Cognitive impairment Dyslipidemia GERD (gastroesophageal reflux disease) Gout History of colon polyps History of dementia History of nonmelanoma skin cancer HTN (hypertension) Hx of bladder cancer Hx of fracture of femur PVD (peripheral vascular disease) with claudication PATIENT STATES I HAVE 2 STENTS IN MY RIGHT LEG . [facility] [place] [facility] [facility] . Seasonal allergies Smoker attempting to quit. states he smokes on/off every other day. Surgical History H/O vasectomy History of colonoscopy with polypectomy History of prostatectomy 2020 Hx of appendectomy Family History Mother CAD (coronary artery disease) Denies family history of Anesthesia complication Bleeding disorder Social History Smoking and tobacco status: current every day smoker cigarettes Packs smoked per day: 1.5 [ Other cigarette details: has smoked approx 55 yrs] Quit status (tobacco): considering quitting Second hand smoke exposure: No (ATTEMPTING TO QUIT) Alcohol intake: never Substance/Drug Use: never Lives independently: Yes Household members: spouse Marital status: Current occupational status: retired Current gender identity: Male Physical Exam Const: COMMON NORMALS: no acute distress GENERAL APPEARANCE: cooperative and comfortable ORIENTATION/CONSCIOUSNESS: Yes awake, Yes oriented to person, Yes oriented to place and Yes oriented to time HENMT: COMMON NORMALS: normocephalic, atraumatic and hearing grossly normal bilaterally HEAD & SCALP: normocephalic and atraumatic Resp: COMMON NORMALS: normal respiratory effort, No retractions, No use of accessory muscles and clear to auscultation bilaterally AUSCULTATION: clear to auscultation bilaterally Cardio: COMMON NORMALS: regular rate, regular rhythm and No murmurs present (Cardio) RATE: regular rate RHYTHM: regular rhythm GI: COMMON NORMALS: Soft to palpation and No hepatosplenomegaly present AUSCULTATION: Yes normoactive bowel sounds PALPATION: Yes Soft to palpation, No Tenderness to palpation present (GI), No Guarding due to palpation present (GI) and Yes No hepatosplenomegaly present Back/Pelvis: OTHER: Straight leg raising negative dorsum plantar flex strength 5 of 5 deep tendon reflexes +2/4 at the patellar tendons bilaterally. Extremity: COMMON NORMALS: normal to inspection, capillary refill normal, no clubbing, cyanosis or edema, no calf tenderness and no pedal edema Neuro: SENSORIUM/ORIENTATION: Yes oriented to person, Yes oriented to place and Yes oriented to time Skin: COMMON NORMALS: no rashes or lesions noted GENERAL SKIN EXAM: no rashes or lesions noted Course Vital Signs: Vital signs: Vital Signs Temperature 97.6 F 04/09/23 14:10 Pulse Rate 93 04/09/23 14:10 Respiratory Rate 16 04/09/23 14:10 Blood Pressure 162/77 04/09/23 14:10 Pulse Oximetry 96 04/09/23 14:10 Oxygen Delivery Me thod Room Air 04/09/23 14:10 MDM - Back Pain/Injury Medical Decision Making Chronic back pain plain films did not show any abnormalities. Patient has previously been seen at the orthopedic clinic for this and may recommend that he follow-up there again. Can use diclofenac as needed for now. History of prostatectomy for prostate cancer no signs of metastatic bone lesions on plain films Medical Records I reviewed the patient's medical records. Labs I reviewed the patient's lab results. Radiology Impressions Lumbar Spine X-Ray 04/09/23 14:22 IMPRESSION: Lumbar disc and facet degeneration, similar to the findings on 12/26/2021. Discharge Plan Discharge Patient Disposition: Home Clinical Impression: Chronic back pain Condition: Stable Prescriptions: New diclofenac sodium 75 mg tablet,delayed release (DR/EC) 75 mg PO Q12H PRN (Reason: pain) Qty: 20 0RF No Action donepezil 10 mg tablet 10 mg PO BEDTIME aspirin [Oliva Low Dose Aspirin] 81 mg tablet,delayed release (DR/EC) 81 mg PO QAM Zyrtec 10 mg capsule 10 mg PO DAILY lidocaine (PF) 10 mg/mL (1 %) solution 1 ml Infiltration ONCE Qty: 1 0RF imiquimod 5 % cream in packet 1 applic topical ONCE Qty: 24 1RF Rx Instructions: Apply thin film to left forearm Saturday-Saturday (off weekends) for 6 weeks pentoxifylline 400 mg tablet extended release 400 mg PO TID Qty: 90 0RF Rx Instructions: administer with meals memantine [Namenda] 10 mg tablet 10 mg PO BID Qty: 60 6RF Rx Instructions: @06:00,14:00 pantoprazole [Protonix] 40 mg tablet,delayed release (DR/EC) 40 mg PO DAILY 30 Days Qty: 30 2RF Lipitor 80 mg Tablet 40 mg PO BEDTIME CoQ-10 100 mg Capsule 100 mg PO DAILY folic acid 1 mg Tablet 1 mg PO DAILY Qty: 30 0RF Vitamin B-1 (mononitrate) 100 mg Tablet 100 mg PO DAILY Qty: 30 0RF Thera 400 mcg Tablet 1 tab PO DAILY Qty: 30 0RF allopurinol 100 mg tablet 100 mg PO DAILY PRN (Reason: gout) amlodipine 10 mg tablet 10 mg PO QAM albuterol sulfate 90 mcg/actuation HFA aerosol inhaler 2 puff inhalation Q4H PRN (Reason: Shortness Of Breath) fluticasone propionate [Flonase Allergy Relief] 50 mcg/actuation spray,suspension 1 spray INTRANASAL DAILY Discharge Orders: Discharge ED (Routine); Ordered 04/09/23 Ordered By: Doug Gomez Referrals: Lacy Strange MD [Primary Care Provider] - Discharge Diet: Usual diet Discharge Activity: Resume usual activity Patient Instructions: Opioid Safety, Pain Management Activity Restrictions/Additional Instructions: Case management make arrangements for follow-up appointment with orthopedic clinic Coding Level of Care Code ED [employer] Member for Michele Andersen
== END 2023-04-09 15:21 | disposition home or self-care (01) ==
PROVIDERS: Emergency Provider Family Medicine; PCP Family Medicine
DX: G89.29 Other chronic pain (principal); M54.50 Low back pain, unspecified; Z79.82 Long term (current) use of aspirin; F17.210 Nicotine dependence, cigarettes, uncomplicated; E78.5 Hyperlipidemia, unspecified; F03.90 Unspecified dementia, unspecified severity, without behavioral disturbance, psychotic disturbance, mood disturbance, and anxiety; I10 Essential (primary) hypertension; Z85.51 Personal history of malignant neoplasm of bladder
CPT/HCPCS: 72100; 99283

== ENCOUNTER → 2023-11-06 14:08 | Outpatient (BNVA) | payer OTHER, SELFPAY | PROVIDERS: PCP Family Medicine; Visit Provider Nurse Practitioner Family | DX: D48.5 Neoplasm of uncertain behavior of skin (principal); L57.0 Actinic keratosis; L57.8 Other skin changes due to chronic exposure to nonionizing radiation; L81.4 Other melanin hyperpigmentation; Z85.828 Personal history of other malignant neoplasm of skin; D22.39 Melanocytic nevi of other parts of face | CPT/HCPCS: 11102; 17004; 99213 ==

== ENCOUNTER → 2024-04-21 15:00 | Outpatient (BNVA) | payer OTHER, SELFPAY | PROVIDERS: PCP Family Medicine; Visit Provider Nurse Practitioner Family | DX: D48.5 Neoplasm of uncertain behavior of skin (principal); L57.0 Actinic keratosis; Z85.828 Personal history of other malignant neoplasm of skin | CPT/HCPCS: 11102; 17004; 99213 ==

== ENCOUNTER → 2024-05-05 09:00 | Outpatient (BNVA) | payer OTHER, SELFPAY | PROVIDERS: PCP Family Medicine; Visit Provider Dermatology | DX: C44.622 Squamous cell carcinoma of skin of right upper limb, including shoulder (principal); D48.5 Neoplasm of uncertain behavior of skin | CPT/HCPCS: 11102; 13132; 17311 ==

== ENCOUNTER → 2024-05-19 10:20 | Outpatient (BNVA) | payer OTHER, SELFPAY | PROVIDERS: PCP Family Medicine; Visit Provider Dermatology | DX: Z48.817 Encounter for surgical aftercare following surgery on the skin and subcutaneous tissue (principal); W54.0XXA Bitten by dog, initial encounter; X58.XXXA Exposure to other specified factors, initial encounter | CPT/HCPCS: 99214 ==

== ENCOUNTER 2024-08-06 11:39 | Emergency (ER) | payer OTHER, SELFPAY ==
[2024-08-06 12:22] VITALS: BP 119/70; PULSE 76; RESP 20; TEMP 36.5; O2SAT 98; BMI 22.6
--- NOTE | 2024-08-06 13:56 | PC.PHAR ---
[facility] 1:50pm 08/06/24
[2024-08-06 14:04] VITALS: BP 141/69; PULSE 75; RESP 16; O2SAT 98
--- NOTE | 2024-08-06 14:25 | W.ED.BACK ---
HPI - Back Pain/Injury General: Chief Complaint: Back Pain/Injury Stated Complaint: left side back pain Time Seen by Provider: 08/06/24 13:52 History of Present Illness: Krytsina Carlisle is a 73-year-old male that presents to the emergency department with acute on chronic back pain. Patient reports that his back pain is similar to prior episodes but he does not recall injuring his back this time. He describes it as a crampy stretching sharp pain on the left greater than right. He denies radiation of pain numbness or tingling into his hip buttock or lower extremity. He denies weakness or increased difficulty ambulating. He denies dysuria, hematuria, burning with urination. Associated symptoms: Deny abdominal pain, chills, change in bowel habits, difficulty walking, dysuria, fatigue, fecal incontinence, fever(s), hematuria, nausea, syncope, urinary urgency or vomiting Related Data Home Medications Medication Instructions Recorded Confirmed allopurinol 100 mg tablet 50 mg PO DAILY PRN gout 10/16/19 08/06/24 amlodipine 10 mg tablet 10 mg PO QAM 10/16/19 08/06/24 aspirin 81 mg tablet,delayed 81 mg PO QAM 10/27/19 08/06/24 release (Oliva Low Dose Aspirin) atorvastatin 80 mg tablet 40 mg PO QPM 08/06/24 08/06/24 bupropion HCl 300 mg 24 hr tablet, 300 mg PO QAM 08/06/24 08/06/24 extended release fluticasone 100 mcg-salmeterol 50 1 inh inhalation BID 08/06/24 08/06/24 mcg/dose blistr powdr for inhalation imiquimod 5 % topical cream packet See Rx Instructions .Route .COMPLEX 08/06/24 08/06/24 ipratropium 20 mcg-albuterol 100 1 puff inhalation QID 08/06/24 08/06/24 mcg/actuation mist for inhalation lisinopril 40 mg tablet 20 mg PO DAILY 08/06/24 08/06/24 loratadine 10 mg tablet 10 mg PO DAILY 08/06/24 08/06/24 memantine 5 mg tablet 15 mg PO QAM 08/06/24 08/06/24 Previous Rx's Medication Instructions Recorded pentoxifylline 400 mg 400 mg PO TID #90 tabs 06/08/20 tablet,extended release multivitamin with folic acid 400 1 tab PO DAILY #30 tabs 02/24/21 mcg tablet (Thera) lidocaine 5 % topical patch 1 patch topical DAILY #15 ea 08/06/24 methocarbamol 500 mg tablet 500 mg PO Q8H PRN Low back pain 08/06/24 #30 tabs Allergies Allergy/AdvReac Type Severity Reaction Status Date / Time Penicillins Allergy Severe ALGY-Swell Verified 08/06/24 12:29 Lip/Tongue/Throat clonidine Allergy Unknown ADR-Dizzine Verified 08/06/24 12:29 ss codeine Allergy Unknown ADR-Abdominal Verified 08/06/24 12:29 Pain metoprolol Allergy Unknown ADR-Dizzine Verified 08/06/24 12:29 ss Sulfa (Sulfonamide Allergy Unknown ADR-Cramping Verified 08/06/24 12:29 Antibiotics) of the Muscles Iodinated Contrast Media Allergy ALGY-Rash Verified 08/06/24 12:29 pravastatin Allergy Unknown Verified 08/06/24 12:29 Review of Systems Const: Denies: fever(s), chills or fatigue ENMT: Denies: throat pain, ear or mastoid pain, nasal discharge or nasal congestion Card: Denies: syncope Resp: Denies: dyspnea, productive cough or non-productive cough GI: Denies: abdominal pain, nausea, vomiting, fecal incontinence or change in bowel habits : Denies: dysuria, urinary urgency or hematuria Skin/Breast: Denies: rash or pruritus Neuro: Denies: difficulty walking PFSH ED PFSH: Medical History Cognitive impairment Dyslipidemia GERD (gastroesophageal reflux disease) Gout History of colon polyps History of dementia History of nonmelanoma skin cancer HTN (hypertension) Hx of bladder cancer Hx of fracture of femur PVD (peripheral vascular disease) with claudication PATIENT STATES I HAVE 2 STENTS IN MY RIGHT LEG . [facility] Seasonal allergies Smoker attempting to quit. states he smokes on/off every other day. Surgical History H/O vasectomy History of colonoscopy with polypectomy History of prostatectomy 2020 Hx of appendectomy Family History Mother CAD (coronary artery disease) Denies family history of Anesthesia complication Bleeding disorder Social History Smoking and tobacco/nicotine status: current every day tobacco/nicotine user cigarettes Packs smoked per day: 1.5 [ Other cigarette details: has smoked approx 55 yrs] Quit status (tobacco/nicotine): considering quitting Second hand smoke exposure: No (ATTEMPTING TO QUIT) Alcohol intake: never Substance/Drug Use: never Lives independently: Yes Household members: spouse Marital status: Current occupational status: retired Current gender identity: Male Physical Exam Const: COMMON NORMALS: no acute distress GENERAL APPEARANCE: cooperative and comfortable ORIENTATION/CONSCIOUSNESS: Yes awake, Yes oriented to person, Yes oriented to place and Yes oriented to time HENMT: COMMON NORMALS: normocephalic, atraumatic and hearing grossly normal bilaterally HEAD & SCALP: normocephalic and atraumatic Resp: COMMON NORMALS: normal respiratory effort, No retractions, No use of accessory muscles and clear to auscultation bilaterally AUSCULTATION: clear to auscultation bilaterally Cardio: COMMON NORMALS: regular rate, regular rhythm and No murmurs present (Cardio) RATE: regular rate RHYTHM: regular rhythm GI: COMMON NORMALS: Soft to palpation and No hepatosplenomegaly present AUSCULTATION: Yes normoactive bowel sounds PALPATION: Yes Soft to palpation, No Tenderness to palpation present (GI), No Guarding due to palpation present (GI) and Yes No hepatosplenomegaly present Back/Pelvis: OTHER: Lumbar back pain, left greater than right. Worse when changing position Patient is able to ambulate without assistance or assistive devices Hip flexor, quad, gastroc, ant tib, toe extensors?5/5 strength Sensation intact throughout the extremity. Patient denies pain numbness or tingling Negative straight leg raise Extremity: COMMON NORMALS: normal to inspection, capillary refill normal, no clubbing, cyanosis or edema, no calf tenderness and no pedal edema Neuro: SENSORIUM/ORIENTATION: Yes oriented to person, Yes oriented to place and Yes oriented to time Skin: COMMON NORMALS: no rashes or lesions noted GENERAL SKIN EXAM: no rashes or lesions noted Course Vital Signs: Vital signs: Vital Signs Temperature 97.7 F 08/06/24 12:22 Pulse Rate 75 08/06/24 14:04 Respiratory Rate 16 08/06/24 14:04 Blood Pressure 141/69 08/06/24 14:04 Pulse Oximetry 98 08/06/24 14:04 Oxygen Delivery Me thod Room Air 08/06/24 14:04 MDM - Back Pain/Injury Medical Decision Making Patient is a 73-year-old man that presents to the emergency department with low back pain left greater than right. Onset of symptoms last 24 hours. Does not recall an event that led to his pain. States he just woke up with it. Patient denies any falls or injuries so if forego any diagnostic evaluation. We did treat his pain with 6 mg of Decadron, 500 mg of methocarbamol, and a lidocaine patch. On reevaluation patient reports he was doing much better. I am going to have him follow-up with his electrostatic painter if he still hurting next week. I am also sending him home with a prescription for Robaxin and lidocaine patches. Patient verbalized understanding Medical Records CT lumbar spine 12/18/2021: FINDINGS: Mild lumbar curve. No acute compression. Disc space narrowing worse at L5-S1. Mild inflammatory stranding about the L4-L5 and L5-S1 vertebral bodies. Recommend follow-up with MRI without and with gadolinium to exclude discitis. L1-L2: Normal. L2-L3: Slight retrolisthesis. Mild annular bulging with slight effacement of ventral thecal sac. Foramen are patent. Mild facet arthropathy. L3-L4: Mild annular bulging with slight narrowing of the subarticular recess bilaterally. Mild facet arthropathy. Mild bilateral foraminal narrowing greater on the LEFT. L4-L5: Shallow central disc bulging with mild to moderate central canal stenosis. Slight impingement traversing L5 nerve roots bilaterally. Moderate facet arthropathy. Moderate bilateral foraminal narrowing LEFT greater than RIGHT. L5-S1: Mild annular bulging with slight effacement of ventral thecal sac. Endplate osteophytic ridging. Mild bilateral foraminal narrowing. Moderate facet arthropathy. Adrenal glands are normal. RIGHT greater than LEFT renal cysts. Abdominal aortic aneurysm appears stable compared to February 24, 2021 measuring 2.[address]/CT lumbar spine wo con* [id number] IMPRESSION: 1. Mild lumbar curve. No acute compression. 2. Disc space narrowing worse L5-S1. 3. Mild to moderate central canal stenosis due to central disc bulging L4-L5 with impingement traversing L5 nerve roots bilaterally. Findings can be further evaluated MRI. 4. Mild central canal stenosis L2-L3 and L3-L4. 5. Moderate bilateral L4-L5 foraminal narrowing LEFT greater than RIGHT. 6. MILD INFLAMMATORY STRANDING ABOUT THE L4-L5 AND L5-S1 VERTEBRAL BODIES. RECOMMEND FOLLOW-UP WITH MRI WITHOUT AND WITH GADOLINIUM TO EXCLUDE DISCITIS. No radiology studies performed this visit Discharge Plan Discharge Patient Disposition: Home Clinical Impression: Acute exacerbation of chronic low back pain Condition: Stable Prescriptions: New lidocaine 5 % adhesive patch,medicated 1 patch topical DAILY Qty: 15 0RF Rx Instructions: leave on most painful area for up to 12 hrs methocarbamol 500 mg tablet 500 mg PO Q8H PRN (Reason: Low back pain) Qty: 30 0RF No Action aspirin [Oliva Low Dose Aspirin] 81 mg tablet,delayed release (DR/EC) 81 mg PO QAM pentoxifylline 400 mg tablet extended release 400 mg PO TID Qty: 90 0RF Rx Instructions: administer with meals multivitamin with folic acid [Thera] 400 mcg Tablet 1 tab PO DAILY Qty: 30 0RF allopurinol 100 mg tablet 50 mg PO DAILY PRN (Reason: gout) amlodipine 10 mg tablet 10 mg PO QAM atorvastatin 80 mg Tablet 40 mg PO QPM fluticasone propion-salmeterol 100-50 mcg/dose Blister With Device 1 inh INHALATION BID lisinopril 40 mg Tablet 20 mg PO DAILY loratadine 10 mg Tablet 10 mg PO DAILY bupropion HCl 300 mg Tablet Extended Release 24 Hr 300 mg PO QAM memantine 5 mg Tablet 15 mg PO QAM ipratropium-albuterol 20-100 mcg/actuation Mist 1 puff INHALATION QID Rx Instructions: space evenly during waking hours imiquimod 5 % cream in packet See Rx Instructions .ROUTE .COMPLEX Rx Instructions: Apply thin film topically to affected area(s) Saturday-Saturday (off weekends) for 6 weeks. Will cause skin irritation. Wash hands with soap and water after application. Discharge Orders: Discharge ED (Routine); Ordered 08/06/24 Ordered By: Yamil Zapata [facility] [place]: Lacy Strange MD [Primary Care Provider] - Bryan Partida MD [Physician] - (Acute on chronic back pain, established patient) Discharge Diet: Advance as tolerated Discharge Activity: Resume usual activity Patient Instructions: Lower Back Exercises (ED), Pain Management Activity Restrictions/Additional Instructions: Please follow-up with Dr. Partida at pain management. I have included his phone number but I have also sent a message saying that you need a referral. Please use the medication I have provided as prescribed. The lidocaine patches can be applied for 12 hours. You can do 1 each day. I have also given you Robaxin (methocarbamol). This is a muscle relaxer. You can take 1 tablet 3 times a day. Please return to the emergency department as needed for new, concerning, worsening symptoms Coding Level of Care Code ED Brick Sorter for Michele Andersen
[2024-08-06] MEDS: dexamethasone 10 mg/mL INJ 6 MG IM (14:35)
[2024-08-06] MEDS: methocarbamol 500 mg Tablet PO (14:35)
[2024-08-06] MEDS: lidocaine 5% Patch 1 PATCH TOPICAL (14:35)
[2024-08-06 15:16] VITALS: BP 154/72; PULSE 75; RESP 16; O2SAT 97
== END 2024-08-06 15:17 | disposition home or self-care (01) ==
PROVIDERS: Emergency Provider Nurse Practitioner; PCP Family Medicine
DX: M54.59 Other low back pain (principal); F17.210 Nicotine dependence, cigarettes, uncomplicated; Z85.51 Personal history of malignant neoplasm of bladder; Z85.828 Personal history of other malignant neoplasm of skin; E78.5 Hyperlipidemia, unspecified; I10 Essential (primary) hypertension
CPT/HCPCS: 96372; 99284; J1100

== ENCOUNTER → 2024-10-13 10:10 | Outpatient (BNVA) | payer OTHER, SELFPAY | PROVIDERS: PCP Family Medicine; Referring Provider Family Medicine; Visit Provider Anesthesiology Pain Medicine | DX: M79.18 Myalgia, other site (principal); M54.9 Dorsalgia, unspecified; M47.816 Spondylosis without myelopathy or radiculopathy, lumbar region; I73.9 Peripheral vascular disease, unspecified | CPT/HCPCS: 99214; J1010; J3490 ==

== ENCOUNTER 2025-03-16 12:51 | Outpatient (CLI) | payer OTHER, SELFPAY ==
[2025-03-17 10:17] LABS: Prostate Specific Antigen < 0.014 ng/mL (0-4)
== END 2025-03-16 12:52 | disposition home or self-care (01) ==
PROVIDERS: PCP Family Medicine; Visit Provider Urology
DX: Z85.51 Personal history of malignant neoplasm of bladder (principal)
CPT/HCPCS: 84153

== ENCOUNTER 2025-05-13 15:03 | Outpatient (CLI) | payer OTHER, SELFPAY ==
[2025-05-13 16:23] LABS: Hematocrit 38.7 % (37-53); Hemoglobin 12.70 g/dL (11.27-16.99); Mean Corpuscular HGB Conc 32.8 g/dL (30-55); Mean Corpuscular Hemoglobin 30.5 pg (27-33); Mean Corpuscular Volume 93.0 fl (82-101); Nucleated Red Blood Cells % 0 %; Platelet Count 304 10^3/cmm (157-399); Red Blood Count 4.16 10^6/uL (3.85-5.65); White Blood Count 7.95 10^3/uL (3.29-11.43)
[2025-05-13 16:57] LABS: Albumin Level 4.2 g/dL (3.5-5.2); Anion Gap 16.7 (5-19); Blood Urea Nitrogen 27 mg/dL (8-23); Calcium 9.4 mg/dL (8.5-10.5); Carbon Dioxide 22 mmol/L (22-29); Chloride 112 mmol/L (98-107); Glucose 89 mg/dL (65-115); Potassium 4.7 mmol/L (3.5-5.1); Sodium 146 mmol/L (136-145)
[2025-05-13 17:00] LABS: Calcium 9.4 mg/dL (8.5-10.5)
[2025-05-13 18:28] LABS: Creatinine Urine, Random 93 mg/dL (39-259)
[2025-05-13 18:29] LABS: Microalbum Creatinine Ratio Ur 65 mg/dL (0-20)
== END 2025-05-13 15:04 | disposition home or self-care (01) ==
LOC: LAB 15:04
PROVIDERS: PCP Family Medicine; Visit Provider Registered Nurse
DX: Z01.89 Encounter for other specified special examinations (principal)
CPT/HCPCS: 36415; 80069; 82044; 82310; 83970; 85025